=== PATIENT | female | born 1930 | race Caucasian/White ===

== ENCOUNTER → 2019-08-12 | Outpatient (CLI) | payer MEDICARE ==
--- NOTE | 2019-08-12 11:16 | Diagnostic Imaging Report ---
INDICATION: Shortness of breath PA and lateral chest Heart size and pulmonary vascularity are normal. Lungs are clear. There are no effusions or pneumothoraces. IMPRESSION: Negative chest. Dictated by: Dictated on workstation # [id number]
== END ==
LOC: LAB FS 10:43
PROVIDERS: ATTEND Family Medicine
DX: R06.02 Shortness of breath (principal); R53.83 Other fatigue
CPT/HCPCS: 71046

== ENCOUNTER → 2019-08-18 | Outpatient (CLI) | payer MEDICARE | LOC: CARD 10:27 | PROVIDERS: ATTEND Family Medicine | DX: I34.0 Nonrheumatic mitral (valve) insufficiency (principal); I51.7 Cardiomegaly; R79.89 Other specified abnormal findings of blood chemistry | CPT/HCPCS: 93306 ==

== ENCOUNTER 2019-08-21 12:55 | Inpatient (IN) | payer MEDICARE ==
[~2019-08-21] VITALS: Ht 154.4 cm; Wt 58.3 kg
[2019-08-21 14:01] LABS: HEMATOCRIT 42 % (35-52); HEMOGLOBIN 14.1 G/DL (11.5-16.0); MEAN CORPUSCULAR HEMOGLOBIN 31 PG (25-34); MEAN CORPUSCULAR VOLUME 94 FL (80-99); WHITE BLOOD COUNT 8.4 10^3/uL (4.3-11.0)
[2019-08-21 14:02] LABS: BASOPHILS # (AUTO) 0.1 10^3/uL (0.0-0.1); BASOPHILS % (AUTO) 1 % (0-10); EOSINOPHILS # (AUTO) 0.3 10^3/uL (0.0-0.3); EOSINOPHILS % (AUTO) 4 % (0-10); LYMPHOCYTES # (AUTO) 1.8 X 10^3 (1.0-4.0); LYMPHOCYTES % (AUTO) 21 % (12-44); MEAN CORPUSCULAR HGB CONC 33 G/DL (32-36); MEAN PLATELET VOLUME 11.4 FL (7.4-10.4); MONOCYTES # (AUTO) 0.7 X 10^3 (0.0-1.0); MONOCYTES % (AUTO) 8 % (0-12); NEUTROPHILS # (AUTO) 5.5 X 10^3 (1.8-7.8); NEUTROPHILS % (AUTO) 66 % (42-75); PLATELET COUNT 208 10^3/uL (130-400); RED CELL DISTRIBUTION WIDTH 13.2 % (10.0-14.5)
--- NOTE | 2019-08-21 14:03 | NUR ---
Daughter Beverly called for updates and updates were given. This RN informed her that we will give her a call when the results come back.
[2019-08-21 14:09] LABS: BACTERIA,URINE NEGATIVE /HPF; BILIRUBIN,URINE NEGATIVE (NEGATIVE); CLARITY,URINE CLEAR; COLOR,URINE YELLOW; GLUCOSE, URINE (UA) 3+ (NEGATIVE); KETONES,URINE NEGATIVE (NEGATIVE); LEUKOCYTE ESTERASE ,URINE NEGATIVE (NEGATIVE); NITRITE,URINE NEGATIVE (NEGATIVE); PROTEIN,URINE NEGATIVE (NEGATIVE); WBC,URINE RARE /HPF
[2019-08-21 14:23] LABS: ALANINE AMINOTRANSFERASE 28 U/L (0-55); ALKALINE PHOSPHATASE 88 U/L (40-136); BILIRUBIN,TOTAL 0.7 MG/DL (0.1-1.0); BUN/CREATININE RATIO 25; CALCIUM 9.6 MG/DL (8.5-10.1); CARBON DIOXIDE 24 MMOL/L (21-32); CHLORIDE 108 MMOL/L (98-107); CREATININE SERUM 1.23 MG/DL (0.60-1.30); GFR ESTIMATED 41; GLUCOSE 114 MG/DL (70-105); MAGNESIUM 2.2 MG/DL (1.6-2.4); POTASSIUM 4.3 MMOL/L (3.6-5.0); SODIUM 144 MMOL/L (135-145)
--- NOTE | 2019-08-21 15:00 | ED General ---
General Chief Complaint: General Problems/Pain Stated Complaint: SOB; GEN WEAKNESS Nursing Triage Note: PT STATES July SHE WALKED AROUND JAINISM 9 LAPS AND BECAME TIRED AND HAS HAD FATIGUE SINCE THEN. Nursing Sepsis Screen: No Definite Risk Source of Information: Patient Exam Limitations: No Limitations History of Present Illness Date Seen by Provider: Aug 21, 2019 Time Seen by Provider: 12:58 Initial Comments Patient is 81-year-old female with history of atrial fibrillation who presents with generalized fatigue and weakness for the past 2-3 weeks. Patient states she feels fatigued is not able to participate in her normal routine. She denies chest pain palpitations, shortness of breath, dizziness, lightheadedness. No fever chills, sweats, abdominal pain, nausea vomiting. Denies very frequency urgency or dysuria. Denies headache, focal motor weakness or loss of sensation. No other acute symptoms or complaints. Timing/Duration: 1-3 Hours Modifying Factors: improves with Medication, improves with Rest Allergies and Home Medications Allergies Coded Allergies: aspirin (Verified Allergy, Mild, Hives, 08/21/19) cerivastatin (Verified Allergy, Mild, Hives, 08/21/19) ciprofloxacin (Verified Allergy, Mild, Nausea, 08/21/19) fenofibrate (Verified Allergy, Mild, Rash, 08/21/19) sulfamethoxazole (Verified Allergy, Mild, Rash, 08/21/19) trimethoprim (Verified Allergy, Mild, Rash, 08/21/19) codeine (Verified Allergy, Unknown, Nausea, 08/21/19) Patient Home Medication List Home Medication List Reviewed: Yes Review of Systems Review of Systems Constitutional: see HPI EENTM: see HPI Respiratory: see HPI Cardiovascular: see HPI Gastrointestinal: no symptoms reported, see HPI Genitourinary: see HPI Musculoskeletal: see HPI Skin: see HPI Psychiatric/Neurological: See HPI Hematologic/Lymphatic: See HPI Past Ppxobnq-Wpccnd-Gvjjjq Hx Past Med/Social Hx: Reviewed Nursing Past Med/Soc Hx Patient Social History Alcohol Use: Denies Use Recreational Drug Use: No Smoking Status: Never a Smoker 2nd Hand Smoke Exposure: No Recent Foreign Travel: No Contact w/Someone Who Travel: No Recent Infectious Disease Expo: No Recent Hopitalizations: No Physical Abuse: No Sexual Abuse: No Mistreated: No Fear: No Seasonal Allergies Seasonal Allergies: No Past Medical History Eye Surgery, Orthopedic Physical Exam Vital Signs Vital Signs - First Documented 08/21/19 13:00 Temp 36.1 Pulse 91 Resp 18 B/P (MAP) 151/72 (98) Pulse Ox 98 O2 Delivery Room Air Capillary Refill : Less Than 3 Seconds Height, Weight, BMI Height: '" Weight: lbs. oz. kg; 25.00 BMI Method: General Appearance: No Apparent Distress, Other (fatigued appearing) Eyes: Bilateral Eye Normal Inspection, Bilateral Eye PERRL, Bilateral Eye EOMI HEENT: PERRL/EOMI, Pharynx Normal Neck: Full Range of Motion, Supple Respiratory: Chest Non Tender, Lungs Clear, Other (irreg rhythm) Cardiovascular: No Murmur, Normal Peripheral Pulses Gastrointestinal: Normal Bowel Sounds Back: Normal Inspection, No CVA Tenderness Extremity: Normal Capillary Refill, Normal Inspection Neurologic/Psychiatric: Alert, Oriented x3, No Motor/Sensory Deficits Focused Exam Sepsis Stage: Ruled Out Progress/Results/Core Measures Suspected Sepsis Recent Fever Within 48 Hours: No Infection Criteria Present: None New/Unexplained Altered Menta: No Sepsis Screen: No Definite Risk SIRS Temperature: Pulse: 91 Respiratory Rate: 18 Laboratory Tests 08/21/19 13:25: White Blood Count 8.4 Blood Pressure 151 /72 Mean: 98 Laboratory Tests 08/21/19 13:25: Creatinine 1.23, Platelet Count 208, Total Bilirubin 0.7 Results/Orders Lab Results Laboratory Tests Test 08/21/19 13:03 08/21/19 13:25 Range/Units Urine Color YELLOW Urine Clarity CLEAR Urine pH 6.0 5-9 Urine Specific [place] 1.015 L 1.016-1.022 Urine Protein NEGATIVE NEGATIVE Urine Glucose (UA) 3+ H NEGATIVE Urine Ketones NEGATIVE NEGATIVE Urine Nitrite NEGATIVE NEGATIVE Urine Bilirubin NEGATIVE NEGATIVE Urine Urobilinogen 0.2 < = 1.0 MG/DL Urine Leukocyte Esterase NEGATIVE NEGATIVE Urine RBC (Auto) NEGATIVE NEGATIVE Urine RBC NONE /HPF Urine WBC RARE /HPF Urine Squamous Epithelial Cells 2-5 /HPF Urine Crystals NONE /LPF Urine Bacteria NEGATIVE /HPF Urine Casts NONE /LPF Urine Mucus NEGATIVE /LPF Urine Culture Indicated NO White Blood Count 8.4 4.3-11.0 10^3/uL Red Blood Count 4.48 4.35-5.85 10^6/uL Hemoglobin 14.1 11.5-16.0 G/DL Hematocrit 42 35-52 % Mean Corpuscular Volume 94 80-99 FL Mean Corpuscular Hemoglobin 31 25-34 PG Mean Corpuscular Hemoglobin Concent 33 32-36 G/DL Red Cell Distribution Width 13.2 10.0-14.5 % Platelet Count 208 130-400 10^3/uL Mean Platelet Volume 11.4 H 7.4-10.4 FL Neutrophils (%) (Auto) 66 42-75 % Lymphocytes (%) (Auto) 21 12-44 % Monocytes (%) (Auto) 8 0-12 % Eosinophils (%) (Auto) 4 0-10 % Basophils (%) (Auto) 1 0-10 % Neutrophils # (Auto) 5.5 1.8-7.8 X 10^3 Lymphocytes # (Auto) 1.8 1.0-4.0 X 10^3 Monocytes # (Auto) 0.7 0.0-1.0 X 10^3 Eosinophils # (Auto) 0.3 0.0-0.3 10^3/uL Basophils # (Auto) 0.1 0.0-0.1 10^3/uL Sodium Level 144 135-145 MMOL/L Potassium Level 4.3 3.6-5.0 MMOL/L Chloride Level 108 H 98-107 MMOL/L Carbon Dioxide Level 24 21-32 MMOL/L Anion Gap 12 5-14 MMOL/L Blood Urea Nitrogen 31 H 7-18 MG/DL Creatinine 1.23 0.60-1.30 MG/DL Estimat Glomerular Filtration Rate 41 BUN/Creatinine Ratio 25 Glucose Level 114 H 70-105 MG/DL Calcium Level 9.6 8.5-10.1 MG/DL Corrected Calcium 9.6 8.5-10.1 MG/DL Magnesium Level 2.2 1.6-2.4 MG/DL Total Bilirubin 0.7 0.1-1.0 MG/DL Aspartate Amino Transf (AST/SGOT) 29 5-34 U/L Alanine Aminotransferase (ALT/SGPT) 28 0-55 U/L Alkaline Phosphatase 88 40-136 U/L Troponin I < 0.30 <0.30 NG/ML Pro-B-Type Natriuretic Peptide 2674.0 H <75.0 PG/ML Total Protein 7.0 6.4-8.2 GM/DL Albumin 4.0 3.2-4.5 GM/DL My Orders Orders - ALISA LOPEZ DO Cbc With Automated Diff (08/21/19 13:21) Comprehensive Metabolic Panel (08/21/19 13:21) Urinalysis (08/21/19 13:21) Troponin I Fs (08/21/19 13:21) Magnesium (08/21/19 13:21) Probnp Fs (08/21/19 13:21) Ekg Tracing (08/21/19 13:21) Digoxin (08/21/19 14:00) Vital Signs/I&O 08/21/19 13:00 Temp 36.1 Pulse 91 Resp 18 B/P (MAP) 151/72 (98) Pulse Ox 98 O2 Delivery Room Air Capillary Refill : Less Than 3 Seconds Blood Pressure Mean: 98 Departure Communication (Admissions) EKG reviewed: Sinus bradycardia with diffuse ST depression concerning for digitoxin effect Chest x-ray: Reviewed Impression Primary Impression: Fatigue Additional Impressions: Symptomatic bradycardia Abnormal EKG Disposition: 62 DISC/XFER TO IRF Condition: Stable/Unchanged Admissions Decision to Admit Reason: Admit from ER (General) Decision to Admit/Date: Aug 21, 2019 Time/Decision to Admit Time: 14:59 Transfer Transfer Reason: Exceeds level of care Time Spoke to Accepting Phy: 14:59 (DR. Chapa) Method of Transfer: EMS Departure-Patient Inst. Referrals: SELF,KAI VASQUEZ (PCP/Family) Primary Care Physician ALISA LOPEZ DO Aug 21, 2019 15:00
--- OUTSIDE RECORDS SUMMARY | 2019-08-21 15:56 | XMS REPORT ---
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 Active 884425275 Problem Hyperlipemia, mixed E78.2 Active 196571693 Problem Hyperlipidemia, mixed E78.2 Active 233115596 Problem Vitamin D deficiency E55.9 Active 37193944 Problem Pulmonary hypertension, unspecified I27.20 Active 27734026 Problem Chronic fatigue R53.82 Active 8422 9001 ALLERGIES No Information ENCOUNTERS Encounter Location Date Diagnosis [address] [id number] [place] [address] Jun, [address] [id number] [place] [address] May, [address] [id number] [place] [address] May, [address] [id number] [place] [address] Apr, [address] [id number] [address] Apr, [address] [id number] [place] [address] Apr, Type 2 diabetes mellitus wit h other specified complication E11.69 and Hyperlipemia, mixed E78.2 [facility] [place] [address] [id number] [place] [address] Apr, [facility] [address] [id number] [place] [address] Apr, [facility] [address] [id number] [place] [address] 08 Mar, 2019 Type 2 diabetes mellitus wit h other specified complication E11.69 [facility] [address] [id number] [place] [address] 07 Mar, 2019 [facility] [address] [id number] [place] [address] Mar, [address] [id number] [place] [address] Mar, [address] [id number], [place] [address] Feb, Encounter for Medicare [facility] wellness exam Z00.00 ; Essential hypertension I10 ; Type 2 diabetes mellitus with other specified complication E11.69 ; Hyperlipidemia, mixed E78.2 ; Chronic fatigue R53.82 ; Pulmonary hypertension, unspecified I27.20 and Vitamin D deficiency E55.9 [facility] [address] [facility] [id number] 100KS [place] [address] Feb, [facility] [address] [id number], [place] [address] Jan, [address] [id number] [place] [address] Dec, Pulmonary hypertension, unsp ecified I27.20 ; Type 2 diabetes mellitus with other specified complication E11.69 ; Hyperlipemia, mixed E78.2 ; Encounter for immunization Z23 ; Leg cramps R25.2 ; Blister of toe of right foot, initial encounter S90.424A ; Chronic fatigue R53.82 and Vitamin D deficiency E55.9 [facility] [address] [id number] [address] 15 Dec, 2018 [facility] [address] [id number] [place] [address] Dec, Type 2 diabetes mellitus wit h other specified complication E11.69 ; Essential hypertension I10 and Hyperlipemia, mixed E78.2 [facility] [place] [address] [id number] [place] [address] Dec, Type 2 diabetes mellitus wit h other specified complication E11.69 ; Essential hypertension I10 and Hyperlipemia, mixed E78.2 [facility] [address] [id number] [place] [address] Dec, [facility] [address] [id number] [place] [address] 17 Nov, 2018 [facility] [address] [id number] [place] [address] 16 Nov, 2018 [facility] [place] [address] [id number] [place] [address] 14 Nov, 2018 [facility] [address] [id number] [place] [address] Nov, [facility] [address] [id number] [place] [address] Sep, [facility] [address] [id number] [place] [address] Aug, Type 2 diabetes mellitus wit h other specified complication E11.69 and Chronic atrial fibrillation I48.2 [facility] [place] [address] [id number] [place] [address] 13 Aug, 2018 Type 2 diabetes mellitus wit h other specified complication E11.69 ; 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 ; Essential hypertension I10 ; Hyperlipemia, mixed E78.2 and Chronic atrial fibrillation I48 .2 [facility] [address] [id number] [place] [address] Aug, [facility] [address] [id number] [place] [address] Aug, [facility] [address] [id number] [place] [address] July, [facility] [address]B [id number] [place] [address] July, [facility] [address] [id number] [place] [address] July, [facility] [address] 340[address] [id number] [place] [address] Jun, [facility] [address] 340B [id number] [place] [address] Jun, [facility] [address] [id number] [place] [address] Jun, [facility] [address] [id number] [place] [address] May, [facility] [address] [id number] [place] [address] May, [facility] [address] [id number] [place] [address] Apr, Left ankle pain M25.572 and Left ankle sprain S93.402A [facility] [address]B [id number] [place] [address] Apr, Type 2 diabetes mellitus wit h other specified complication E11.69 ; 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 ; Essential hypertension I10 ; Hyperlipemia, mixed E78.2 and Chronic atrial fibrillation I48 .2 [facility] [address] [id number] [place] [address] Apr, IMMUNIZATIONS No Known Immunizations SOCIAL HISTORY Never Assessed REASON FOR VISIT Requests return call PLAN OF CARE VITAL SIGNS MEDICATIONS Unknown Medications RESULTS No Results PROCEDURES No Known procedures INSTRUCTIONS MEDICATIONS ADMINISTERED No Known Medications MEDICAL (GENERAL) HISTORY Type Description Date Medical History Type 2 diabetes mellitus with other spec ified complication Medical History termite technician current 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
--- OUTSIDE RECORDS SUMMARY | 2019-08-21 15:56 | XMS REPORT ---
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 Active 347196534 Problem Hyperlipemia, mixed E78.2 Active 083515813 Problem Hyperlipidemia, mixed E78.2 Active 334959186 Problem Vitamin D deficiency E55.9 Active 98893127 Problem Pulmonary hypertension, unspecified I27.20 Active 37095108 Problem Chronic fatigue R53.82 Active 8422 9001 ALLERGIES No Information ENCOUNTERS Encounter Location Date Diagnosis [address] [id number] [place] [address] Jun, [address] 340[address] [id number] [place] [address] May, [address] 340B [id number] [place] [address] May, [address] 340[address] [id number] [place] [address] Apr, [address] [id number], [place] [address] Apr, [address] 340B [id number] [place] [address] Apr, Type 2 diabetes mellitus wit h other specified complication E11.69 and Hyperlipemia, mixed E78.2 [facility] [place] [address] [id number] [place] [address] Apr, [facility] [address] 340[address] [id number] [place] [address] Apr, [facility] [address] 340B [id number] [place] [address] 08 Mar, 2019 Type 2 diabetes mellitus wit h other specified complication E11.69 [facility] [address] 340[address] [id number] [place] [address] 07 Mar, 2019 [facility] [address] 340B [id number] [place] [address] Mar, [address] [id number] [place] [address] Mar, [address] 340[id number], [place] [address] Feb, Encounter for Medicare [facility] wellness exam Z00.00 ; Essential hypertension I10 ; Type 2 diabetes mellitus with other specified complication E11.69 ; Hyperlipidemia, mixed E78.2 ; Chronic fatigue R53.82 ; Pulmonary hypertension, unspecified I27.20 and Vitamin D deficiency E55.9 [facility] [address] [facility] [id number] 100[address] [place] [address] Feb, [facility] [place] [address] 340[address] [id number], [place] [address] Jan, [address] [id number] [place] [address] Dec, Pulmonary hypertension, unsp ecified I27.20 ; Type 2 diabetes mellitus with other specified complication E11.69 ; Hyperlipemia, mixed E78.2 ; Encounter for immunization Z23 ; Leg cramps R25.2 ; Blister of toe of right foot, initial encounter S90.424A ; Chronic fatigue R53.82 and Vitamin D deficiency E55.9 [facility] [address] 340B [id number][place] [address] 15 Dec, 2018 [facility] [place] [address] 340B [id number] [place] [address] Dec, Type 2 diabetes mellitus wit h other specified complication E11.69 ; Essential hypertension I10 and Hyperlipemia, mixed E78.2 [facility] [place] [address]B [id number] [place] [address] Dec, Type 2 diabetes mellitus wit h other specified complication E11.69 ; Essential hypertension I10 and Hyperlipemia, mixed E78.2 [facility] [address]B [id number] [place] [address] Dec, [facility] [place] [address] [id number] [place] [address] 17 Nov, 2018 [facility] [address]B [id number] [place] [address] 16 Nov, 2018 [facility] [place] [address] [id number] [place] [address] 14 Nov, 2018 [facility] [address] [id number] [place] [address] Nov, [facility] [place] [address] [id number] [place] [address] Sep, [facility] [address] [id number] [place] [address] Aug, Type 2 diabetes mellitus wit h other specified complication E11.69 and Chronic atrial fibrillation I48.2 [facility] [place] [address]B [id number] [place] [address] 13 Aug, 2018 Type 2 diabetes mellitus wit h other specified complication E11.69 ; 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 ; Essential hypertension I10 ; Hyperlipemia, mixed E78.2 and Chronic atrial fibrillation I48 .2 [facility] [address] 340B [id number] [place] [address] Aug, [facility] [place] [address]B [id number] [place] [address] Aug, [facility] [address] [id number] [place] [address] July, [facility] [address] 340B [id number] [place] [address] July, [facility] [address] [id number] [place] [address] July, [facility] [address] [id number] [place] [address] Jun, [facility] [address] 340B [id number] [place] [address] Jun, [facility] [address] 340B [id number] [place] [address] Jun, [facility] [address] [id number] [place] [address] May, [facility] [address] [id number] [place] [address] May, [facility] [address] [id number] [place] [address] Apr, Left ankle pain M25.572 and Left ankle sprain S93.402A [facility] [address] [id number] [place] [address] Apr, Type 2 diabetes mellitus wit h other specified complication E11.69 ; 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 ; Essential hypertension I10 ; Hyperlipemia, mixed E78.2 and Chronic atrial fibrillation I48 .2 [facility] [address] [id number] [place] [address] Apr, IMMUNIZATIONS No Known Immunizations SOCIAL HISTORY Never Assessed REASON FOR VISIT [place] PLAN OF CARE VITAL SIGNS MEDICATIONS Unknown Medications RESULTS No Results PROCEDURES No Known procedures INSTRUCTIONS MEDICATIONS ADMINISTERED No Known Medications MEDICAL (GENERAL) HISTORY Type Description Date Medical History Type 2 diabetes mellitus with other spec ified complication 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
--- OUTSIDE RECORDS SUMMARY | 2019-08-21 15:56 | XMS REPORT ---
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 Active 063464599 Problem Chronic atrial fibrillation I48.2 Ac tive 601387125 ALLERGIES No Information ENCOUNTERS Encounter Location Date Diagnosis [address] [address] Dec, [address] [address] Aug, Type 2 diabetes mellitus with other spec ified complication E11.69 and Chronic atrial fibrillation I48.[address] [address] Aug, Type 2 diabetes mellitus with other spec ified complication E11.69 ; halfway current use of insulin Z79.4 ; Essential hypertension I10 ; Hyperlipemia, mixed E78.2 and Chronic atrial fibrillation I48.[address] [address] Aug, [address] [address] Aug, [address] [address] July, [address] [address] July, [address] [address] July, [facility] [address] [address] Jun, [facility] [address] [address] Jun, [facility] [address] [address] Jun, [facility] [address] [address] May, [address] [address] May, [facility] [address] [facility] [place] [address] Apr, Left ankle pain M25.572 and Left ankle s prain S93.402A [facility] [address] [address] Apr, Type 2 diabetes mellitus with other spec ified complication E11.69 ; halfway current use of insulin Z79.4 ; Essential hypertension I10 ; Hyperlipemia, mixed E78.2 and Chronic atrial fibrillation I48.[address] [address] Apr, IMMUNIZATIONS No Known Immunizations SOCIAL HISTORY Never Assessed REASON FOR VISIT Medication question PLAN OF CARE VITAL SIGNS MEDICATIONS Medication Instructions Dosage Frequency Start Date End Date Duration S tatus Alprazolam 0.25 MG Orally as directed 1/2 tablet in the m orning and 1 at HS as needed 28 days Active RESULTS No Results PROCEDURES No Known procedures INSTRUCTIONS MEDICATIONS ADMINISTERED No Known Medications MEDICAL (GENERAL) HISTORY Type Description Date Medical History Type 2 diabetes mellitus with other spec ified complication Medical History halfway current use of insulin Medical History Essential hypertension Medical History Hyperlipidemia, mixed Medical History Chronic atrial fibrillation Surgical History left knee arthroscopy 1985 Surgical History right knee arthroscopy 1985 Surgical History cataract-lens implants X2 2007 Surgical History eyes lift Surgical History removal rocks from head 2016
--- OUTSIDE RECORDS SUMMARY | 2019-08-21 15:57 | XMS REPORT | Continuity of Care Document ---
Author Organization Unknown Address Unknown Phone Unavailable Allergies There is no data. Medications There is no data. 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 Results Test Result Range LIPID PANEL - 08/29/18 10:00 CHOLESTEROL, TOTAL 137 mg/dL <200 HDL CHOLESTEROL 48 mg/dL >50 TRIGLYCERIDES 166 mg/dL <150 LDL-CHOLESTEROL 65 mg/dL (calc) NRG CHOL/HDLC RATIO 2.9 (calc) <5.0 NON HDL CHOLESTEROL 89 mg/dL (calc) <130 CMP - 08/29/18 10:00 GLUCOSE 152 mg/dL 65-99 UREA NITROGEN (BUN) 17 mg/dL 7-25 CREATININE 1.04 mg/dL 0.60-0.88 eGFR NON-AFR. CAMEROONIAN 48 mL/min/1.73m2 > OR = 60 eGFR 56 mL/min/1.73m2 > OR = 60 BUN/CREATININE RATIO 16 (calc) 6-22 SODIUM 144 mmol/L 135-146 POTASSIUM 4.4 mmol/L 3.5-5.3 CHLORIDE 108 mmol/L 98-110 CARBON DIOXIDE 26 mmol/L 20-32 CALCIUM 9.5 mg/dL 8.6-10.4 PROTEIN, TOTAL 7.0 g/dL 6.1-8.1 ALBUMIN 4.6 g/dL 3.6-5.1 GLOBULIN 2.4 g/dL (calc) 1.9-3.7 ALBUMIN/GLOBULIN RATIO 1.9 (calc) 1.0-2. 5 BILIRUBIN, TOTAL 1.2 mg/dL 0.2-1.2 ALKALINE PHOSPHATASE 58 U/L 33-130 AST 19 U/L 10-35 ALT 16 U/L - TSH - 08/29/18 10:00 TSH 3.75 mIU/L 0.40-4.50 A1C - 08/29/18 10:00 HEMOGLOBIN A1c 8.3 % of total Hgb <5.7 TSH w/ FREE T4 - 12/27/18 09:49 TSH 2.83 mIU/L 0.40-4.50 T4, FREE 1.1 ng/dL 0.8-1.8 LIPID PANEL - 12/27/18 09:49 CHOLESTEROL, TOTAL 131 mg/dL <200 HDL CHOLESTEROL 41 mg/dL >50 TRIGLYCERIDES 168 mg/dL <150 LDL-CHOLESTEROL 65 mg/dL (calc) NRG CHOL/HDLC RATIO 3.2 (calc) <5.0 NON HDL CHOLESTEROL 90 mg/dL (calc) <130 CMP - 12/27/18 09:49 GLUCOSE 133 mg/dL 65-99 UREA NITROGEN (BUN) 20 mg/dL 7-25 CREATININE 1.02 mg/dL 0.60-0.88 eGFR NON-AFR. CAMEROONIAN 49 mL/min/1.73m2 > OR = 60 eGFR 57 mL/min/1.73m2 > OR = 60 BUN/CREATININE RATIO 20 (calc) 6-22 SODIUM 144 mmol/L 135-146 POTASSIUM 5.0 mmol/L 3.5-5.3 CHLORIDE 109 mmol/L 98-110 CARBON DIOXIDE 24 mmol/L 20-32 CALCIUM 9.3 mg/dL 8.6-10.4 PROTEIN, TOTAL 6.6 g/dL 6.1-8.1 ALBUMIN 4.1 g/dL 3.6-5.1 GLOBULIN 2.5 g/dL (calc) 1.9-3.7 ALBUMIN/GLOBULIN RATIO 1.6 (calc) 1.0-2. 5 BILIRUBIN, TOTAL 1.3 mg/dL 0.2-1.2 ALKALINE PHOSPHATASE 63 U/L 33-130 AST 18 U/L 10-35 ALT 14 U/L - A1C - 12/27/18 09:49 HEMOGLOBIN A1c 7.7 % of total Hgb <5.7 MAGNESIUM SERUM - 07/02/19 09:29 MAGNESIUM 1.7 mg/dL 1.5-2.5 CBC - 07/02/19 09:29 WHITE BLOOD CELL COUNT 7.6 Thousand/uL 3 .8-10.8 RED BLOOD CELL COUNT 4.63 Million/uL 3.8 0-5.10 HEMOGLOBIN 14.4 g/dL 11.7-15.5 HEMATOCRIT 43.7 % 35.0-45.0 MCV 94.4 fL 80.0-100.0 MCH 31.1 pg 27.0-33.0 MCHC 33.0 g/dL 32.0-36.0 RDW 11.8 % 11.0-15.0 PLATELET COUNT 196 Thousand/uL 140-400 MPV 12.1 fL 7.5-12.5 ABSOLUTE NEUTROPHILS 5525 cells/uL 1500- 7800 ABSOLUTE LYMPHOCYTES 1155 cells/uL 850-3 900 ABSOLUTE MONOCYTES 585 cells/uL 200-950 ABSOLUTE EOSINOPHILS 228 cells/uL 15-500 ABSOLUTE BASOPHILS 106 cells/uL 0-200 NEUTROPHILS 72.7 % NRG LYMPHOCYTES 15.2 % NRG MONOCYTES 7.7 % NRG EOSINOPHILS 3.0 % NRG BASOPHILS 1.4 % NRG VITAMIN D, 25-H - 07/02/19 09:29 VITAMIN D,25-OH,TOTAL,IA 43 ng/mL 30-10 0 A1C - 07/02/19 09:29 HEMOGLOBIN A1c 9.1 % of total Hgb <5.7 VITAMIN B12 - 07/02/19 09:29 VITAMIN B12 823 pg/mL 200-1100 CMP - 08/12/19 11:09 GLUCOSE 244 mg/dL 65-99 UREA NITROGEN (BUN) 33 mg/dL 7-25 CREATININE 1.18 mg/dL 0.60-0.88 eGFR NON-AFR. CAMEROONIAN 41 mL/min/1.73m2 > OR = 60 eGFR 48 mL/min/1.73m2 > OR = 60 BUN/CREATININE RATIO 28 (calc) 6-22 SODIUM 143 mmol/L 135-146 POTASSIUM 4.6 mmol/L 3.5-5.3 CHLORIDE 108 mmol/L 98-110 CARBON DIOXIDE 26 mmol/L 20-32 CALCIUM 9.5 mg/dL 8.6-10.4 PROTEIN, TOTAL 6.8 g/dL 6.1-8.1 ALBUMIN 4.1 g/dL 3.6-5.1 GLOBULIN 2.7 g/dL (calc) 1.9-3.7 ALBUMIN/GLOBULIN RATIO 1.5 (calc) 1.0-2. 5 BILIRUBIN, TOTAL 1.0 mg/dL 0.2-1.2 ALKALINE PHOSPHATASE 94 U/L 37-153 AST 29 U/L 10-35 ALT 36 U/L 6-29 CBC - 08/12/19 11:09 WHITE BLOOD CELL COUNT 8.0 Thousand/uL 3 .8-10.8 RED BLOOD CELL COUNT 4.37 Million/uL 3.8 0-5.10 HEMOGLOBIN 14.0 g/dL 11.7-15.5 HEMATOCRIT 42.3 % 35.0-45.0 MCV 96.8 fL 80.0-100.0 MCH 32.0 pg 27.0-33.0 MCHC 33.1 g/dL 32.0-36.0 RDW 12.3 % 11.0-15.0 PLATELET COUNT 208 Thousand/uL 140-400 MPV 12.1 fL 7.5-12.5 ABSOLUTE NEUTROPHILS 5896 cells/uL 1500- 7800 ABSOLUTE LYMPHOCYTES 1200 cells/uL 850-3 900 ABSOLUTE MONOCYTES 592 cells/uL 200-950 ABSOLUTE EOSINOPHILS 216 cells/uL 15-500 ABSOLUTE BASOPHILS 96 cells/uL 0-200 NEUTROPHILS 73.7 % NRG LYMPHOCYTES 15.0 % NRG MONOCYTES 7.4 % NRG EOSINOPHILS 2.7 % NRG BASOPHILS 1.2 % NRG A1C - 08/12/19 11:09 HEMOGLOBIN A1c 9.1 % of total Hgb <5.7 BNP - 08/12/19 11:09 B TYPE NATRIURETIC PEPTIDE (BNP) 355 pg/mL <100 TROPONIN I - 08/12/19 11:09 TROPONIN I 0.01 ng/mL < OR = 0.05 Encounters ACCT No. Visit Date/Time Discharge Status Pt. Type Provider Facility Loc./Unit Complaint [id number] 08/12/2019 10:30:00 08/12/2019 23:59: 59 CLS Outpatient SELF, KAI Avila [facility] [id number] 08/12/2019 10:30:00 Document Registration [id number] 07/02/2019 09:20:00 Document Registration [id number] 12/27/2018 08:30:00 Document Registration [id number] 08/29/2018 09:45:00 Document Registration [id number] 08/12/2019 10:43:00 020 23:59:59 CLS Outpatient SELF KAI VASQUEZ Via [facility] FS FATIGUE,SHORTNESS OF BR EATH [id number] 08/18/2019 10:27:[address] Outpatient SELF KAI VASQUEZ [facility] [place] CARD ELEVATED BRAIN NATRIURETIC P EPTIDE
--- NOTE | 2019-08-21 16:14 | NUR ---
Report was given to Tiffanie, TERESA and Rajan, SKIN PILER. Care was transferred at this time.
[2019-08-21] MEDS ORDERED: ONDANSETRON 4 MG (ZOFRAN) ORAL DISSOLVE TAB PO PRN (16:15)
[2019-08-21] MEDS ORDERED: MELATONIN 3 MG TABLET PO PRN (16:15)
[2019-08-21] MEDS ORDERED: HYDROcodone/APAP 5 MG/325 MG (LORTAB) TAB PO PRN (16:15)
[2019-08-21] MEDS ORDERED: diphenhydrAMINE 25 MG TAB (BENADRYL) PO PRN (16:15)
[2019-08-21] MEDS ORDERED: ONDANSETRON 4 MG/2 ML (SDV) Z0FRAN IVP PRN (16:15)
[2019-08-21] MEDS ORDERED: ALPRAZolam 0.25 MG (XANAX) TAB PO PRN (16:15)
[2019-08-21] MEDS ORDERED: CALCIUM CARBONATE 500 MG (TUMS) TAB.CHEW PO PRN (16:15)
[2019-08-21] MEDS ORDERED: ACETAMINOPHEN 500 MG TAB (TYLENOL) PO PRN (16:15)
[2019-08-21] MEDS ORDERED: ENOXAPARIN 40 MG/0.4 ML (LOVENOX) SYR SC SCH (16:15)
[2019-08-21] MEDS ORDERED: CATHETER FLUSH 10 ML SYR IV PRN (16:30)
[2019-08-21 17:13] VITALS: BP 143/67
[2019-08-21] MEDS: NS IV 1000 ML 1,000 ML IV SCH (17:19)
--- OUTSIDE RECORDS SUMMARY | 2019-08-21 18:31 | XMS REPORT | Continuity of Care Document ---
[...] 7-25 CREATININE 1.04 mg/dL 0.60-0.88 eGFR NON-AFR. GABONESE 48 mL/min/1.73m2 > OR = 60 eGFR [...] 7-25 CREATININE 1.02 mg/dL 0.60-0.88 eGFR NON-AFR. GABONESE 49 mL/min/1.73m2 > OR = 60 eGFR [...] 7-25 CREATININE 1.18 mg/dL 0.60-0.88 eGFR NON-AFR. GABONESE 41 mL/min/1.73m2 > OR = 60 eGFR [...] Status Pt. Type Provider Facility Loc./Unit Complaint [id number] 08/12/2019 10:30:00 08/12/2019 23:59: 59 CLS Outpatient SELF, KAI Avila [facility] [id number] 08/12/2019 10:30:00 Document Registration [id number] 07/02/2019 09:20:00 Document Registration [id number] 12/27/2018 08:30:00 Document Registration [id number] 08/29/2018 09:45:00 Document Registration [id number] 08/12/2019 10:43:00 020 23:59:59 CLS Outpatient SELF KAI VASQUEZ Via [facility] FS FATIGUE,SHORTNESS OF BR EATH [id number] 08/18/2019 10:27:[address] Outpatient SELF KAI VASQUEZ [facility] [place] CARD ELEVATED BRAIN NATRIURETIC P EPTIDE
[2019-08-21 19:23] VITALS: BP 150/66
[2019-08-21] MEDS: SENNA W/DOCUSATE (SENOKOT S) TABLET PO SCH (20:04)
[2019-08-21] MEDS: APIXABAN 2.5 MG (ELIQUIS) TABLET PO SCH (20:24)
[2019-08-21] MEDS ORDERED: FUROSEMIDE 40 MG/4 ML INJ (LASIX) ONE (20:44)
[2019-08-21] MEDS: FUROSEMIDE 40 MG/4 ML INJ (LASIX) IVP SCH (20:49)
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
[2019-08-22] VITALS: BP 124/65
[2019-08-22 04:20] VITALS: BP 128/71
[2019-08-22] MEDS: FUROSEMIDE 40 MG/4 ML INJ (LASIX) IVP SCH (06:11)
[2019-08-22 07:03] LABS: BASOPHILS # (AUTO) 0.1 10^3/uL (0.0-0.1); BASOPHILS % (AUTO) 1 % (0-10); EOSINOPHILS # (AUTO) 0.3 10^3/uL (0.0-0.3); EOSINOPHILS % (AUTO) 4 % (0-10); HEMATOCRIT 45 % (35-52); HEMOGLOBIN 14.7 G/DL (11.5-16.0); LYMPHOCYTES # (AUTO) 1.6 X 10^3 (1.0-4.0); LYMPHOCYTES % (AUTO) 20 % (12-44); MEAN CORPUSCULAR HEMOGLOBIN 31 PG (25-34); MEAN CORPUSCULAR HGB CONC 33 G/DL (32-36); MEAN CORPUSCULAR VOLUME 95 FL (80-99); MEAN PLATELET VOLUME 11.7 FL (7.4-10.4); MONOCYTES # (AUTO) 0.8 X 10^3 (0.0-1.0); MONOCYTES % (AUTO) 10 % (0-12); NEUTROPHILS # (AUTO) 5.3 X 10^3 (1.8-7.8); NEUTROPHILS % (AUTO) 66 % (42-75); PLATELET COUNT 204 10^3/uL (130-400); WHITE BLOOD COUNT 8.1 10^3/uL (4.3-11.0)
[2019-08-22 07:16] LABS: BILIRUBIN,TOTAL 1.1 MG/DL (0.1-1.0); CALCIUM 9.5 MG/DL (8.5-10.1); CREATININE SERUM 1.07 MG/DL (0.60-1.30); POTASSIUM 3.8 MMOL/L (3.6-5.0); TOTAL PROTEIN 7.2 GM/DL (6.4-8.2)
[2019-08-22 07:43] VITALS: BP 103/47
--- NOTE | 2019-08-22 09:18 | Consultation-Cardiology ---
HPI-Cardiology Cardiology Consultation Date of Consultation 08/22/19 Date of Admission Time Seen by Provider: 09:13 HPI 89-year-old lady with history of chronic atrial fibrillation, has been following with a plumber supervisor. Patient has been complaining of generalized weakness and loss of energy. Denied any syncope, no chest pain, no palpitation, seen in [place] emergency room and noted to be bradycardic with a heart rate 33. On my evaluation today he still complaining of dizziness and weakness and loss of energy but her heart rate is in the 70s. Does not know the name of the plumber supervisor who follows with. Home Medications & Allergies Allergies: Coded Allergies: aspirin (Verified Allergy, Mild, Hives, 08/21/19) cerivastatin (Verified Allergy, Mild, Hives, 08/21/19) ciprofloxacin (Verified Allergy, Mild, Nausea, 08/21/19) fenofibrate (Verified Allergy, Mild, Rash, 08/21/19) sulfamethoxazole (Verified Allergy, Mild, Rash, 08/21/19) trimethoprim (Verified Allergy, Mild, Rash, 08/21/19) codeine (Verified Allergy, Unknown, Nausea, 08/21/19) Home Medication List Reviewed: Yes BYP-Poplct-Acxlgy Hx Patient Social History Marital Status: Employed/Student: retired Alcohol Use: Denies Use Recreational Drug Use: No Smoking Status: Never a Smoker 2nd Hand Smoke Exposure: No Recent Foreign Travel: No Recent Infectious Disease Expo: No Recent Hopitalizations: No Past Medical History Discussed below Family Medical History Family Medical Hx Noncontributory Review of Systems-General Review of Systems Constitutional: see HPI, malaise, weakness EENTM: see HPI, no symptoms reported Respiratory: see HPI; No cough; dyspnea on exertion; No hemoptysis, No orthopnea, No phlegm, No short of breath, No stridor, No wheezing, No other Cardiovascular: see HPI; No chest pain, No edema, No Hx of Intervention, No palpitations, No syncope, No vascular heart diseas, No other Gastrointestinal: no symptoms reported, see HPI Genitourinary: see HPI Musculoskeletal: see HPI, joint pain, muscle weakness Skin: see HPI Psychiatric/Neurological: See HPI Reviewed Test Results Reviewed Test Results Lab Laboratory Tests Test 08/21/19 13:03 08/21/19 13:25 08/22/19 06:07 Range/Units Urine Color YELLOW Urine Clarity CLEAR Urine pH 6.0 5-9 Urine Specific [place] 1.015 L 1.016-1.022 Urine Protein NEGATIVE NEGATIVE Urine Glucose (UA) 3+ H NEGATIVE Urine Ketones NEGATIVE NEGATIVE Urine Nitrite NEGATIVE NEGATIVE Urine Bilirubin NEGATIVE NEGATIVE Urine Urobilinogen 0.2 < = 1.0 MG/DL Urine Leukocyte Esterase NEGATIVE NEGATIVE Urine RBC (Auto) NEGATIVE NEGATIVE Urine RBC NONE /HPF Urine WBC RARE /HPF Urine Squamous Epithelial Cells 2-5 /HPF Urine Crystals NONE /LPF Urine Bacteria NEGATIVE /HPF Urine Casts NONE /LPF Urine Mucus NEGATIVE /LPF Urine Culture Indicated NO White Blood Count 8.4 8.1 4.3-11.0 10^3/uL Red Blood Count 4.48 4.71 4.35-5.85 10^6/uL Hemoglobin 14.1 14.7 11.5-16.0 G/DL Hematocrit 42 45 35-52 % Mean Corpuscular Volume 94 95 80-99 FL Mean Corpuscular Hemoglobin 31 31 25-34 PG Mean Corpuscular Hemoglobin Concent 33 33 32-36 G/DL Red Cell Distribution Width 13.2 14.0 10.0-14.5 % Platelet Count 208 204 130-400 10^3/uL Mean Platelet Volume 11.4 H 11.7 H 7.4-10.4 FL Neutrophils (%) (Auto) 66 66 42-75 % Lymphocytes (%) (Auto) 21 20 12-44 % Monocytes (%) (Auto) 8 10 0-12 % Eosinophils (%) (Auto) 4 4 0-10 % Basophils (%) (Auto) 1 1 0-10 % Neutrophils # (Auto) 5.5 5.3 1.8-7.8 X 10^3 Lymphocytes # (Auto) 1.8 1.6 1.0-4.0 X 10^3 Monocytes # (Auto) 0.7 0.8 0.0-1.0 X 10^3 Eosinophils # (Auto) 0.3 0.3 0.0-0.3 10^3/uL Basophils # (Auto) 0.1 0.1 0.0-0.1 10^3/uL Sodium Level 144 142 135-145 MMOL/L Potassium Level 4.3 3.8 3.6-5.0 MMOL/L Chloride Level 108 H 108 H 98-107 MMOL/L Carbon Dioxide Level 24 22 21-32 MMOL/L Anion Gap 12 12 5-14 MMOL/L Blood Urea Nitrogen 31 H 25 H 7-18 MG/DL Creatinine 1.23 1.07 0.60-1.30 MG/DL Estimat Glomerular Filtration Rate 41 48 BUN/Creatinine Ratio 25 23 Glucose Level 114 H 104 70-105 MG/DL Calcium Level 9.6 9.5 8.5-10.1 MG/DL Corrected Calcium 9.6 9.5 8.5-10.1 MG/DL Magnesium Level 2.2 2.0 1.6-2.4 MG/DL Total Bilirubin 0.7 1.1 H 0.1-1.0 MG/DL Aspartate Amino Transf (AST/SGOT) 29 31 5-34 U/L Alanine Aminotransferase (ALT/SGPT) 28 31 0-55 U/L Alkaline Phosphatase 88 82 40-136 U/L Troponin I < 0.30 <0.30 NG/ML Pro-B-Type Natriuretic Peptide 2674.0 H <75.0 PG/ML Total Protein 7.0 7.2 6.4-8.2 GM/DL Albumin 4.0 4.0 3.2-4.5 GM/DL Digoxin Level 0.81 0.63 L 0.80-2.00 NG/ML B-Type Natriuretic Peptide 167.0 H <100.0 PG/ML Triglycerides Level 156 H <150 MG/DL Cholesterol Level 161 < 200 MG/DL LDL Cholesterol Direct 103 1-129 MG/DL VLDL Cholesterol 31 5-40 MG/DL HDL Cholesterol 40 40-60 MG/DL Physical Exam Physical Exam Vital Signs Vital Signs - First Documented 08/21/19 13:00 Temp 36.1 Pulse 91 Resp 18 B/P (MAP) 151/72 (98) Pulse Ox 98 O2 Delivery Room Air Capillary Refill : Less Than 3 Seconds Height, Weight, BMI Height: '" Weight: lbs. oz. kg; 24.91 BMI Method: General Appearance: No Apparent Distress, Chronically ill Eyes: Right Eye Normal Inspection, Right Eye PERRL; Bilateral Eye EOMI HEENT: PERRL/EOMI, Normal ENT Inspection, Pharynx Normal, Moist Mucous Mem branes Neck: Full Range of Motion, Normal Inspection, Non Tender Respiratory: Chest Non Tender, Lungs Clear, Normal Breath Sounds, No Accessory Muscle Use, No Respiratory Distress Cardiovascular: No Edema, No Gallop, No JVD, No Murmur, Normal Peripheral Pulses, Bradycardia, Irregularly Irregular Gastrointestinal: Normal Bowel Sounds, No Organomegaly, No Pulsatile Mass, Non Tender, Soft Back: Normal Inspection, No CVA Tenderness, No Vertebral Tenderness Extremity: Normal Capillary Refill, Normal Inspection, Normal Range of Motion, Non Tender, No Calf Tenderness, No Pedal Edema Neurologic/Psychiatric: Alert, Oriented x3, No Motor/Sensory Deficits, Normal Mood/Affect, Motor Weakness (generalized all extremities) Skin: Normal Color, Warm/Dry Lymphatic: No Adenopathy A/P-Cardiology Admission Diagnosis Severe bradycardia Chronic atrial fibrillation Hypertension Debility Assessment/Plan Severe bradycardia, probably due to medication, currently heart rate is better. Still symptomatic weakness and loss of energy. Will start physical therapy and continue to monitor, discontinue digoxin for now. Questionable history of congestive heart failure, no signs of heart failure at this time, hold diuretics and monitor tolerance and response Hypertension, continue to monitor blood pressure Chronic persistent atrial fibrillation, maintained on oral anticoagulation, restart medication and monitor. Hyperlipidemia, monitor lipids Depression, anxiety, managed by primary care team Clinical Quality Measures DVT/VTE Risk/Contraindication: Risk Factor Score Per Nursin RFS Level Per Nursing on Admit: 2=Moderate JOSE MANUEL DIOP MD Aug 22, 2019 09:18
[2019-08-22] MEDS: SENNA W/DOCUSATE (SENOKOT S) TABLET PO SCH ×2 (09:20→20:24)
[2019-08-22] MEDS: APIXABAN 2.5 MG (ELIQUIS) TABLET PO SCH ×2 (09:20→20:23)
--- NOTE | 2019-08-22 10:01 | NUR ---
CM/SS: Visited with pt as to plan for discharge Plan: Pt to return home - likely pt will not have any needs Summary: Pt is sitting up in bed with daughter in law at the bedside. Pt is able to give information as to how she ended up here. Pt lives at home alone, with son living next door in [place], [place]. She reports if she is in her yard she can yell at the son, and he can yell back, that is how close she describes they live. Pt has been very independent and has seated walker and other equipment in the home. Pt also calls her sister daily and they check on one another, and if they do not reach one another , they call a family member to check on them. Pt feels as if she will not need anything upon discharge. She is aware of this worker role on the care teams should she need anything. This worker will follow up.
[2019-08-22] MEDS ORDERED: CYAN50TA3 PO (10:24)
[2019-08-22] MEDS ORDERED: LINA5TAB PO (10:24)
[2019-08-22] MEDS ORDERED: APIX2.5T PO (10:24)
[2019-08-22] MEDS ORDERED: VITA80006 PO (10:24)
[2019-08-22] MEDS ORDERED: MULT-1136 PO (10:24)
[2019-08-22] MEDS ORDERED: DIGO125T3 PO (10:24)
[2019-08-22] MEDS ORDERED: ASCO250T17 PO (10:24)
[2019-08-22] MEDS ORDERED: INSU100I34 SQ (10:24)
[2019-08-22] MEDS ORDERED: GARL500C2 PO (10:24)
[2019-08-22] MEDS ORDERED: DAPA5TAB PO (10:24)
[2019-08-22] MEDS ORDERED: VIT1CAPS44 PO (10:24)
[2019-08-22] MEDS ORDERED: SIMV40TA25 PO (10:24)
[2019-08-22] MEDS ORDERED: METO50TA7 PO (10:24)
[2019-08-22] MEDS ORDERED: ALPR0.254 PO (10:24)
[2019-08-22] MEDS ORDERED: FERR-84 PO (10:24)
[2019-08-22] MEDS ORDERED: CHOL10007 PO (10:24)
[2019-08-22] MEDS ORDERED: INSU100I10 SQ (10:47)
--- NOTE | 2019-08-22 10:49 | NUR ---
SPOKE WITH THE PT AND HER DAUGHTER (SHE HAD A MED LIST WITH HER THAT I ATTACHED TO THE CHART) AND CALLED [facility] THEN WENT THRU THE EXT MED HISTORY TO COMPLETE THE MED REC THE FOLLOWING ARE FILL DATES FROM [facility] ORDER: 05-01-2019 ELIQUIS 2.5MG ##180/90DS- I DID DOCUMENT THE PAST DUE FILL ON THE MED REC 07-11-2019 DIGOXIN 125MCG #90/90DS 07-11-2019 METOPROLOL SUCC 25MG #90/90DS 07-15-2019 SIMVASTATIN 40MG #90/90DS 07-17-2019 LANTUS SOLOSTAR #10 PENS/120DS 07-25-2019 TRADJENTA 5MG #90/90DS GLIPIZIDE 5MG WAS FILLED ON 07-11-2019 #180 HOWEVER THE PT SAYS SHE IS NO LONGER TAKING METFORMIN 500MG, BACLOFEN 10MG AND DICLOFENAC GEL ARE LISTED ON THE MED LIST BUT THE PT IS NOT TAKING ANY OF THESE MEDICATIONS ALL OTHER CURRENT MEDICATIONS ARE LISTED ON THE EXT MED HISTORY OTC MEDS: VIT B GARLIC IRON [employer] PRESERVISION VIT A VIT C VIT D
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
[2019-08-22] MEDS ORDERED: ALPRAZolam 0.25 MG (XANAX) TAB PO PRN (11:45)
[2019-08-22 12:59] VITALS: BP 101/53
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
[2019-08-22 16:00] VITALS: BP 134/58
[2019-08-22 20:00] VITALS: BP 124/50
[2019-08-22] MEDS: NS IV 1000 ML 1,000 ML IV SCH (20:24)
[2019-08-22] MEDS ORDERED: SIMvastatin 40 MG (ZOCOR) TAB PO SCH (21:00)
[2019-08-22] MEDS ORDERED: APIXABAN 5 MG (ELIQUIS) TABLET PO SCH (21:00)
[2019-08-23] VITALS: BP 104/49
[2019-08-23] MEDS: NS IV 1000 ML 1,000 ML IV SCH (01:28)
[2019-08-23 03:50] LABS: BASOPHILS # (AUTO) 0.1 10^3/uL (0.0-0.1); BASOPHILS % (AUTO) 1 % (0-10); EOSINOPHILS # (AUTO) 0.3 10^3/uL (0.0-0.3); EOSINOPHILS % (AUTO) 4 % (0-10); HEMATOCRIT 45 % (35-52); HEMOGLOBIN 15.2 G/DL (11.5-16.0); LYMPHOCYTES # (AUTO) 1.4 X 10^3 (1.0-4.0); LYMPHOCYTES % (AUTO) 18 % (12-44); MEAN CORPUSCULAR HEMOGLOBIN 32 PG (25-34); MEAN CORPUSCULAR HGB CONC 34 G/DL (32-36); MEAN CORPUSCULAR VOLUME 95 FL (80-99); MEAN PLATELET VOLUME 11.4 FL (7.4-10.4); MONOCYTES # (AUTO) 0.8 X 10^3 (0.0-1.0); MONOCYTES % (AUTO) 10 % (0-12); NEUTROPHILS # (AUTO) 5.3 X 10^3 (1.8-7.8); NEUTROPHILS % (AUTO) 68 % (42-75); PLATELET COUNT 205 10^3/uL (130-400); WHITE BLOOD COUNT 7.8 10^3/uL (4.3-11.0)
[2019-08-23 04:00] VITALS: BP 112/66
[2019-08-23 04:24] LABS: ALBUMIN 3.9 GM/DL (3.2-4.5)
[2019-08-23 04:25] LABS: POTASSIUM 3.8 MMOL/L (3.6-5.0)
[2019-08-23 04:26] LABS: CALCIUM 9.5 MG/DL (8.5-10.1)
[2019-08-23 04:31] LABS: CREATININE SERUM 1.29 MG/DL (0.60-1.30)
[2019-08-23 08:01] VITALS: BP 107/71
[2019-08-23] MEDS ORDERED: LINAGLIPTIN (TRADJENTA) 5 MG TABLET PO SCH (09:00)
[2019-08-23] MEDS ORDERED: NON-FORMULARY MEDICATION 1 EA EA (Dapagliflozin Propanediol (Farxiga) 5 MG) PO SCH (09:00)
[2019-08-23] MEDS: DOCUSATE SODIUM 100 MG (COLACE) CAP PO PRN ×2 (09:27→09:31)
[2019-08-23] MEDS: APIXABAN 2.5 MG (ELIQUIS) TABLET PO SCH (09:27)
[2019-08-23] MEDS: SENNA W/DOCUSATE (SENOKOT S) TABLET PO SCH (09:34)
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
--- NOTE | 2019-08-23 11:51 | Cardiology Progress Note ---
Subjective Date Seen by Provider: Aug 23, 2019 Time Seen by Provider: 11:50 Subjective/Events-last exam Patient is laying down in bed, feeling better. No new complaint, had a long visit with her and her son, discussed echo findings, discussed treatment plan. Review of Systems General: No Chills, No Night Sweats, No Fatigue, No Malaise, No Appetite, No Other HEENT: No Head Aches, No Visual Changes, No Eye Pain, No Ear Pain, No Dysphasia, No Sinus Congestion, No Post Nasal Drip, No Sore Throat, No Other Pulmonary: No Dyspnea, No Cough, No Pleuritic Chest Pain, No Other Cardiovascular: No: Chest Pain, Palpitations, Orthopnea, Paroxysmal Noc. Dyspnea, Edema, Lt Headedness, Other Objective-Cardiology Exam Last Set of Vital Signs Vital Signs 08/23/19 08:01 Temp 36.1 Pulse 72 Resp 16 B/P (MAP) 107/71 (83) Pulse Ox 95 O2 Delivery Room Air Capillary Refill : Less Than 3 Seconds I&O Intake and Output 08/23/19 00:00 Intake Total 1000 ml Balance 1000 ml Intake Oral 1000 ml # Voids 8 # Bowel Movements 1 General: Alert, Oriented X3, Cooperative HEENT: Atraumatic, PERRLA Neck: Supple, No JVD, No Thyromegaly Lungs: Clear to Auscultation, Normal Air Movement Heart: Regular Rate, Normal S1, Normal S2, No Murmurs Abdomen: Normal Bowel Sounds, Soft, No Tenderness, No Hepatosplenomegaly, No Masses Extremities: No Clubbing, No Cyanosis, No Edema, Normal Pulses, No Tenderness/Swelling Skin: No Rashes, No Breakdown, No Significant Lesion Neuro: Normal Gait, Normal Speech, Strength at 5/5 X4 Ext, Normal Tone, Sensation Intact Psych/Mental Status: Mental Status NL, Mood NL Results Lab Laboratory Tests 08/23/19 03:18 A/P-Cardiology Admission Diagnosis Severe bradycardia Chronic atrial fibrillation Hypertension Debility Assessment/Plan Severe bradycardia, probably due to medication, currently heart rate is better. Heart rate is better, feeling better. 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 No signs of heart failure. Hypertension, continue to monitor blood pressure Chronic persistent atrial fibrillation, maintained on oral anticoagulation, off digoxin at this time. Hyperlipidemia, monitor lipids Depression, anxiety, managed by primary care team Clinical Quality Measures DVT/VTE Risk/Contraindication: Risk Factor Score Per Nursin RFS Level Per Nursing on Admit: 2=Moderate JOSE MANUEL DIOP MD Aug 23, 2019 11:51
[2019-08-23 12:00] VITALS: BP 145/80
--- NOTE | 2019-08-23 12:22 | Physical Therapy Daily Note ---
PT Daily Note-Current Subjective Pt has been up with assistance from family or nursing without AD. Mild unsteadiness noted with no vertigo. Mental Status Patient Orientation: Person, Place, Time, Situation Transfers SCALE: Activities may be completed with or without assistive devices. 8-Mpimcvxbpj-iyzyjbm completes the activity by him/herself with no assistance from a helper. 5-Set-up or Clean-up Assistance-helper sets up or cleans up; patient completes activity. [place] assists only prior to or following the activity. 4-Supervision or Touching Assistance-helper provides verbal cues and/or touching/steadying and/or contact guard assistance as patient completes activity. Assistance may be provided throughout the activity or intermittently. 3-Partial/Moderate Assistance-helper does LESS THAN HALF the effort. [place] lifts, holds or supports trunk or limbs, but provides less than half the effort. 2-Substantial/Maximal Assistance-helper does MORE THAN HALF the effort. [place] lifts or holds trunk or limbs and provides more than half the effort. 2-Bqwmtgwhq-hgwqwz does ALL the effort. Patient does none of the effort to complete the activity. Or, the assistance of 2 or more helpers is required for the patient to complete the activity. If activity was not attempted, code reason: 7-Patient Refused. 9-Not Applicable-not attempted and the patient did not perform the activity before the current illness, exacerbation or injury. 10-Not Attempted due to Environmental Limitations-(lack of equipment, weather restraints, etc.). 88-Not Attempted due to Medical Conditions or Safety Concerns. Roll Left & Right (QC): 6 Sit to Lying (QC): 6 Lying to Sitting/Side of Bed(Q: 6 Sit to Stand (QC): 5 Chair/Hgx-jz-Ocnec Xfer(QC): 5 Weight Bearing Right Lower Extremity: Right Weight Bearing/Tolerated Left Lower Extremity: Left Weight Bearing/Tolerated Gait Training Does the Patient Walk?: Yes Distance: 180ft Walk 10 feet (QC): 5 Walk 50 ft with 2 Turns(QC): 5 Walk 150 ft (QC): 5 Gait Persons Needed: 1 Gait Assistive Device: FWW Pt demonstrated occasional scissoring during ambulation. She does require at least supervision for safe ambulation. Wheelchair Training Does the Pt Use a Wheelchair?: No Exercises Supine Ex: LE Protocol Supine Reps: 20 Assessment Current Status: Good Progress Pt has some instability during gait and would benefit from continued use of the walker. She reports that she has a walker at home. PT Short Term Goals Short Term Goals Time Frame: Aug 29, 2019 Roll Left & Right: 6 Sit to lyin Lying to sitting on side of be: 6 Sit to stand: 6 Chair/fyj-eg-rgcyb transfer: 6 Toilet transfer: 6 Car transfer: 6 Walk 10 feet: 6 Walk 50 feet with two turns: 6 Walk 150 feet: 6 Walking 10ft on uneven surface: 5 1 step (curb): 6 4 steps: 6 12 steps: 5 PT Plan Treatment/Plan Treatment Plan: Continue Plan of Care Treatment Plan: Bed Mobility, Education, Functional Strength, Gait, Therapeutic Exercise Treatment Duration: Aug 29, 2019 Frequency: 6 times per week Estimated Hrs Per Day: .25 hour per day Patient and/or Family Agrees t: Yes Time/GCodes Time In: 09 Time Out: 0950 Total Billed Treatment Time: 25 Total Billed Treatment 1, ex 15, gt 10 ALISA SHERIFF PT Aug 23, 2019 12:22
--- NOTE | 2019-08-23 13:21 | NUR ---
PT WAS OFF FLOOR FOR VITALS
[2019-08-23 13:52] VITALS: BP 145/80
== END 2019-08-23 14:30 | disposition home or self-care (01) | DRG 310 ==
LOC: EDUNIT# 12:55 → ER FS 12:57 → CSD 15:00
PROVIDERS: ADMIT Internal Medicine; ATTEND Internal Medicine
DX: R00.1 Bradycardia, unspecified (principal); R53.83 Other fatigue; R53.1 Weakness; I48.19 Other persistent atrial fibrillation; I10 Essential (primary) hypertension; S06.9X9S Unspecified intracranial injury with loss of consciousness of unspecified duration, sequela; R26.81 Unsteadiness on feet; E11.9 Type 2 diabetes mellitus without complications; Z79.01 Long term (current) use of anticoagulants; E78.5 Hyperlipidemia, unspecified; F32.9 Major depressive disorder, single episode, unspecified; F41.9 Anxiety disorder, unspecified
CPT/HCPCS: 36415; 80053; 80061; 80162; 81000; 82962; 83735; 83880; 84443; 84484; 85025; 85027; 93005; 93306

== ENCOUNTER 2021-02-17 16:23 | Emergency (ER) | payer MEDICARE ==
[~2021-02-17 16:23] MED LIST: ALPR.25T PO; APIX2.5T PO; ASCO250T17 PO; CHOL10007 PO; CYAN50TA3 PO; DAPA5TAB PO; DIGO125T3 PO; FERR-84 PO; GARL500C2 PO; INSU100I10 SQ; INSU100I34 SQ; LINA5TAB PO; METO50TA7 PO; MULT-1136 PO; SIMV40TA25 PO; VIT1CAPS44 PO; VITA80006 PO
--- OUTSIDE RECORDS SUMMARY | 2021-02-17 16:28 | XMS REPORT | Clinical Summary ---
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
[2021-02-17] MEDS ORDERED: TETANUS,DIPTH,PERTUSS P/F (BOOSTRIX) 0.5 ML VIAL IM ONE (16:45)
[2021-02-17] MEDS ORDERED: LACTATED RINGERS 1,000 ML IV SCH (16:45)
--- NOTE | 2021-02-17 16:53 | ED General ---
General Chief Complaint: Trauma-Non Activation Stated Complaint: FELL,RT SHOULDER PAIN History of Present Illness Date Seen by Provider: Feb 17, 2021 Time Seen by Provider: 16:49 Initial Comments Patient presenting to the emergency department for evaluation of generalized weakness malaise fatigue dizziness. Patient has not been able to ambulate safely as she says that her legs will not move or give her strength and she fell twice today with a second fall causing a abrasion to her right elbow and pain to her right shoulder. Patient denies head neck chest abdomen back or other extremity pain and no unilateral weakness numbness or tingling. Patient says she has been taking her medications as prescribed. She is on Eliquis for atrial fibrillation. Her blood pressure is low and she thinks she may have been eating and drinking less. She is in no acute distress. Allergies and Home Medications Allergies Coded Allergies: aspirin (Verified Allergy, Mild, Hives, 08/21/19) cerivastatin (Verified Allergy, Mild, Hives, 08/21/19) ciprofloxacin (Verified Allergy, Mild, Nausea, 08/21/19) fenofibrate (Verified Allergy, Mild, Rash, 08/21/19) sulfamethoxazole (Verified Allergy, Mild, Rash, 08/21/19) trimethoprim (Verified Allergy, Mild, Rash, 08/21/19) codeine (Verified Allergy, Unknown, Nausea, 08/21/19) Patient Home Medication List Home Medication List Reviewed: Yes ALPRAZolam (Xanax Tablet) 0.25 Mg Tablet, 0.125 MG PO BID PRN for ANXIETY, (Reported) Entered as Reported by: ADE DELAROSA on 08/22/19 1024 Apixaban (Eliquis) 2.5 Mg Tablet, 2.5 MG PO BID, (Reported) Entered as Reported by: ADE DELAROSA on 08/22/19 1024 Ascorbic Acid (Vitamin C) 250 Mg Tab.chew, 250 MG PO DAILY, (Reported) Entered as Reported by: ADE DELAROSA on 08/22/19 1024 Cholecalciferol (Vitamin D3) (Vitamin D3) 25 Mcg Capsule, 25 MCG PO DAILY, (Reported) Entered as Reported by: ADE DELAROSA on 08/22/19 1024 Cyanocobalamin (Vitamin B-12) (Vitamin B-12) 50 Mcg Tablet, 50 MCG PO DAILY, (Reported) Entered as Reported by: ADE DELAROSA on 08/22/19 1024 Dapagliflozin Propanediol (Farxiga) 5 Mg Tablet, 5 MG PO DAILY, (Reported) Entered as Reported by: ADE DELAROSA on 08/22/19 1024 Ferrous Sulfate (Iron) 325 Mg Tablet, 325 MG PO DAILY, (Reported) Entered as Reported by: ADE DELAROSA on 08/22/19 1024 Garlic (Garlic) 500 Mg Capsule, 500 MG PO DAILY, (Reported) Entered as Reported by: ADE DELAROSA on 08/22/19 1024 Insulin Glargine,Hum.rec.anlog (Lantus Solostar) 100 Unit/1 Ml Insuln.pen, 25 UNIT SQ DAILY, (Reported) Entered as Reported by: ADE DELAROSA on 08/22/19 1047 Linagliptin (Tradjenta) 5 Mg Tablet, 5 MG PO DAILY, (Reported) Entered as Reported by: ADE DELAROSA on 08/22/19 1024 Multivitamin (Multivitamin) 1 Each Tablet, 1 EACH PO DAILY, (Reported) Entered as Reported by: ADE DELAROSA on 08/22/19 1024 Simvastatin (Simvastatin) 40 Mg Tablet, 40 MG PO HS, (Reported) Entered as Reported by: ADE DELAROSA on 08/22/19 1024 Vit C/E/Zn/Coppr/Lutein/Zeaxan (Preservision Areds 2 Softgel) 1 Each Capsule, 1 EACH PO BID, (Reported) Entered as Reported by: ADE DELAROSA on 08/22/19 1024 Vitamin A (Vitamin A) 8,000 Unit Capsule, 8,000 UNIT PO DAILY, (Reported) Entered as Reported by: ADE DELAROSA on 08/22/19 1024 Review of Systems Review of Systems Constitutional: dizziness, malaise, weakness EENTM: no symptoms reported Respiratory: no symptoms reported Cardiovascular: no symptoms reported Gastrointestinal: no symptoms reported Musculoskeletal: joint pain Skin: other (Abrasion) Psychiatric/Neurological: No Symptoms Reported All Other Systems Reviewed Negative Unless Noted: Yes Past Dhyqqlv-Pwtnly-Smvxpz Hx Seasonal Allergies Seasonal Allergies: No Past Medical History Eye Surgery, Orthopedic Atrial Fibrillation, Hypertension Traumatic Brain Injury Diabetes, Non-Insulin dep Physical Exam Vital Signs Vital Signs - First Documented 02/17/21 17:55 Temp 36.4 Pulse 90 Resp 16 B/P (MAP) 119/54 (75) Pulse Ox 95 O2 Delivery Room Air Capillary Refill : Height, Weight, BMI Height: '" Weight: lbs. oz. kg; 24.91 BMI Method: General Appearance: No Apparent Distress, Chronically ill HEENT: PERRL/EOMI Neck: Supple Respiratory: Lungs Clear, No Respiratory Distress Cardiovascular: Regular Rate, Rhythm Gastrointestinal: Non Tender, Soft Back: Normal Inspection Extremity: Normal Capillary Refill, No Pedal Edema Neurologic/Psychiatric: Alert, Oriented x3, No Motor/Sensory Deficits Skin: Warm/Dry Focused Exam Lactate Level 02/17/21 17:25: Lactic Acid Level 1.54 Lactic Acid Level Laboratory Tests Test 02/17/21 17:25 Lactic Acid Level 1.54 MMOL/L (0.50-2.00) Progress/Results/Core Measures Suspected Sepsis SIRS Temperature: Pulse: Respiratory Rate: Laboratory Tests 02/17/21 17:25: White Blood Count 11.3H Blood Pressure / Mean: 02/17/21 17:25: Lactic Acid Level 1.54 Laboratory Tests 02/17/21 17:25: Creatinine 1.60H, INR Comment 1.2, Platelet Count 167, Total Bilirubin 0.7 Results/Orders Lab Results Laboratory Tests Test 02/17/21 17:25 02/17/21 18:42 Range/Units White Blood Count 11.3 H 4.3-11.0 10^3/uL Red Blood Count 4.85 3.80-5.11 10^6/uL Hemoglobin 15.6 11.5-16.0 g/dL Hematocrit 47 35-52 % Mean Corpuscular Volume 97 80-99 fL Mean Corpuscular Hemoglobin 32 25-34 pg Mean Corpuscular Hemoglobin Concent 33 32-36 g/dL Red Cell Distribution Width 13.8 10.0-14.5 % Platelet Count 167 130-400 10^3/uL Mean Platelet Volume 11.7 9.0-12.2 fL Immature Granulocyte % (Auto) 0 % Neutrophils (%) (Auto) 86 H 42-75 % Lymphocytes (%) (Auto) 5 L 12-44 % Monocytes (%) (Auto) 8 0-12 % Eosinophils (%) (Auto) 0 0-10 % Basophils (%) (Auto) 1 0-10 % Neutrophils # (Auto) 9.7 H 1.8-7.8 X 10^3 Lymphocytes # (Auto) 0.5 L 1.0-4.0 X 10^3 Monocytes # (Auto) 0.9 0.0-1.0 X 10^3 Eosinophils # (Auto) 0.0 0.0-0.3 10^3/uL Basophils # (Auto) 0.1 0.0-0.1 10^3/uL Immature Granulocyte # (Auto) 0.0 0.0-0.1 10^3/uL Prothrombin Time 15.7 H 12.2-14.7 SEC INR Comment 1.2 0.8-1.4 Activated Partial Thromboplast Time 29 24-35 SEC Sodium Level 134 L 135-145 MMOL/L Potassium Level 4.7 3.6-5.0 MMOL/L Chloride Level 97 L 98-107 MMOL/L Carbon Dioxide Level 21 21-32 MMOL/L Anion Gap 16 H 5-14 MMOL/L Blood Urea Nitrogen 30 H 7-18 MG/DL Creatinine 1.60 H 0.60-1.30 MG/DL Estimat Glomerular Filtration Rate 30 BUN/Creatinine Ratio 19 Glucose Level 205 H 70-105 MG/DL Lactic Acid Level 1.54 0.50-2.00 MMOL/L Calcium Level 9.4 8.5-10.1 MG/DL Corrected Calcium 9.5 8.5-10.1 MG/DL Total Bilirubin 0.7 0.1-1.0 MG/DL Aspartate Amino Transf (AST/SGOT) 30 5-34 U/L Alanine Aminotransferase (ALT/SGPT) 23 0-55 U/L Alkaline Phosphatase 100 40-136 U/L Troponin I < 0.30 <0.30 NG/ML Pro-B-Type Natriuretic Peptide 4508.0 H <75.0 PG/ML Total Protein 7.5 6.4-8.2 GM/DL Albumin 3.9 3.2-4.5 GM/DL Lipase 45 8-78 U/L My Orders Orders - TAHIR PEREZ DO Iv/Invasive Line Insertion .IV start (02/17/21 16:38) Ct Head Wo (02/17/21 16:38) Cbc With Automated Diff (02/17/21 16:38) Comprehensive Metabolic Panel (02/17/21 16:38) Lactic Acid Analyzer (02/17/21 16:38) Blood Culture (02/17/21 16:38) Ua Culture If Indicated (02/17/21 16:38) Chest 1 View Ap/Pa Only (02/17/21 16:38) Ekg Tracing (02/17/21 16:38) Troponin I Fs (02/17/21 16:38) Protime With Inr (02/17/21 16:38) Probnp Fs (02/17/21 16:38) Partial Thromboplastin Time (02/17/21 16:38) Lipase (02/17/21 16:38) Lactated Ringers (Lr 1000 Ml Iv Solution (02/17/21 16:45) Dipht,Pertuss(Acell),Tet Adult (Boostrix (02/17/21 16:45) Shoulder 3 View Right (02/17/21 16:38) Blood Culture (02/17/21 16:43) Ns Iv 1000 Ml (Sodium Chloride 0.9%) (02/17/21 17:17) Manual Differential (02/17/21 17:25) Ns Iv 1000 Ml (Sodium Chloride 0.9%) (02/17/21 18:30) Medications Given in ED Current Medications Medications Dose Ordered Sig/Clive Route Start Time Stop Time Status Last Admin Dose Admin Diphtheria/ Tetanus/Acell Pertussis 0.5 ml ONCE ONCE IM 02/17/21 16:45 02/17/21 16:46 DC 02/17/21 17:30 0.5 ML Sodium Chloride 1,000 ml @ ud STK-MED ONCE .ROUTE 02/17/21 17:17 02/17/21 17:21 DC 02/17/21 17:29 999 MLS/HR Vital Signs/I&O 02/17/21 17:55 Temp 36.4 Pulse 90 Resp 16 B/P (MAP) 119/54 (75) Pulse Ox 95 O2 Delivery Room Air Capillary Refill : Progress Note : Progress Note Patient with nonspecific generalized malaise fatigue and weakness in the setting of hypotension. I will check labs imaging treat with IV fluids and reassess. Patient with findings of dehydration with new onset renal insufficiency. She also does have leukocytosis. Urine is pending at this time. I asked the patient if she was feeling better now that her blood pressure somewhat improved and if she would be able to go home however she says that she still feels very weak and would be unable to walk and says she does not feel safe going home and family concurs that they cannot take care of her at home as she lives by herself. Patient is requesting admission. I spoke to Dr. Chapa and she agreed to accept the patient at [facility]. Patient will be continued on IV fluids and antibiotics will be added if there is any signs of a urinary tract infection. Departure Impression Primary Impression: Sprain of shoulder, right Qualified Codes: S43.401A - Unspecified sprain of right shoulder joint, initial encounter Additional Impressions: Dehydration Renal insufficiency Failure to thrive in adult Leukocytosis Hypotension Disposition: 02 XFER SHT-TRM HOSP Condition: Improved Transfer Transfer Reason: Exceeds level of care Transfer Facility: [facility] Method of Transfer: EMS Departure-Patient Inst. Referrals: SELF,KAI VASQUEZ (PCP/Family) Primary Care Physician TAHIR PEREZ DO Feb 17, 2021 16:53
--- NOTE | 2021-02-17 17:10 | Diagnostic Imaging Report ---
INDICATION: Weakness Portable chest 4:54 PM Heart size and pulmonary vascularity are normal. Lungs are clear. There are no effusions or pneumothoraces. IMPRESSION: No acute abnormalities in the chest. No appreciable change compared to 08/12/2019. Dictated by: Dictated on workstation # [id number]
--- NOTE | 2021-02-17 17:10 | Diagnostic Imaging Report ---
PROCEDURE: CT head without contrast. TECHNIQUE: Multiple contiguous axial images were obtained through the brain without the use of intravenous contrast. Auto Exposure Controls were utilized during the CT exam to meet ALARA standards for radiation dose reduction. INDICATION: Frequent falls, weakness. FINDINGS: The ventricles are normal in size, shape and position. There are no masses or hemorrhages. There are no extra-axial fluid collections. IMPRESSION: Negative CT head. Dictated by: Dictated on workstation # [id number]
--- NOTE | 2021-02-17 17:14 | Diagnostic Imaging Report ---
INDICATION: Right shoulder injury from a fall. FINDINGS: Three views of the right shoulder do not show any displaced fractures. There is no dislocation. There are mild degenerative changes of the acromioclavicular joint. IMPRESSION: No acute abnormalities seen in the right shoulder. Dictated by: Dictated on workstation # [id number]
[2021-02-17] MEDS ORDERED: NS IV 1000 ML 1,000 ML ONE (17:17)
[2021-02-17 17:48] LABS: HEMATOCRIT 47 % (35-52); HEMOGLOBIN 15.6 g/dL (11.5-16.0); MEAN CORPUSCULAR HEMOGLOBIN 32 pg (25-34); MEAN CORPUSCULAR HGB CONC 33 g/dL (32-36); MEAN CORPUSCULAR VOLUME 97 fL (80-99); MEAN PLATELET VOLUME 11.7 fL (9.0-12.2); PLATELET COUNT 167 10^3/uL (130-400); WHITE BLOOD COUNT 11.3 10^3/uL (4.3-11.0)
[2021-02-17 17:49] LABS: BASOPHILS # (AUTO) 0.1 10^3/uL (0.0-0.1); BASOPHILS % (AUTO) 1 % (0-10); EOSINOPHILS % (AUTO) 0 % (0-10); LYMPHOCYTES # (AUTO) 0.5 X 10^3 (1.0-4.0); LYMPHOCYTES % (AUTO) 5 % (12-44); MONOCYTES # (AUTO) 0.9 X 10^3 (0.0-1.0); MONOCYTES % (AUTO) 8 % (0-12); NEUTROPHILS # (AUTO) 9.7 X 10^3 (1.8-7.8); NEUTROPHILS % (AUTO) 86 % (42-75)
[2021-02-17 18:00] LABS: INR 1.2 (0.8-1.4); PROTHROMBIN TIME PATIENT 15.7 SEC (12.2-14.7)
[2021-02-17 18:17] LABS: CARBON DIOXIDE 21 MMOL/L (21-32); CHLORIDE 97 MMOL/L (98-107); POTASSIUM 4.7 MMOL/L (3.6-5.0); SODIUM 134 MMOL/L (135-145)
[2021-02-17 18:18] LABS: ALANINE AMINOTRANSFERASE 23 U/L (0-55); ALBUMIN 3.9 GM/DL (3.2-4.5); ALKALINE PHOSPHATASE 100 U/L (40-136); BILIRUBIN,TOTAL 0.7 MG/DL (0.1-1.0); BUN/CREATININE RATIO 19; CALCIUM 9.4 MG/DL (8.5-10.1); GFR ESTIMATED 30; GLUCOSE 205 MG/DL (70-105); LIPASE 45 U/L (8-78); TOTAL PROTEIN 7.5 GM/DL (6.4-8.2)
[2021-02-17] MEDS ORDERED: NS IV 1000 ML 1,000 ML IV SCH (18:30)
[2021-02-17 18:56] LABS: BILIRUBIN,URINE NEGATIVE (NEGATIVE); CLARITY,URINE CLEAR; COLOR,URINE YELLOW; GLUCOSE, URINE (UA) 3+ (NEGATIVE); KETONES,URINE 1+ (NEGATIVE); LEUKOCYTE ESTERASE ,URINE NEGATIVE (NEGATIVE); NITRITE,URINE NEGATIVE (NEGATIVE); PROTEIN,URINE NEGATIVE (NEGATIVE)
[2021-02-17 19:22] LABS: BACTERIA,URINE NEGATIVE /HPF; HYALINE CASTS, URINE RARE /LPF; RBC,URINE RARE /HPF; SQUAMOUS EPITHELIAL CELL,UR RARE /HPF
[2021-02-17] MEDS ORDERED: HYDROcodone/APAP 5 MG/325 MG (LORTAB) TAB PO ONE (19:30)
[2021-02-17 19:32] VITALS: BP 132/56
[2021-02-17 19:36] LABS: BAND NEUTROPHILS 4 %; BASOPHILS % (MANUAL) 0 %; EOSINOPHILS % (MANUAL) 0 %; LYMPHOCYTES % (MANUAL) 8 %; MONOCYTES % (MANUAL) 4 %; NEUTROPHILS % (MANUAL) 84 %
[2021-02-17] MEDS ORDERED: NS IV 1000 ML 1,000 ML IV ONE (19:45)
== END 2021-02-17 20:15 | disposition short-term general hospital (02) ==
LOC: EDUNIT# 16:23 → ER FS 16:25
DX: S43.401A Unspecified sprain of right shoulder joint, initial encounter (principal); S50.311A Abrasion of right elbow, initial encounter; E86.0 Dehydration; N28.9 Disorder of kidney and ureter, unspecified; R62.7 Adult failure to thrive; D72.829 Elevated white blood cell count, unspecified; I95.9 Hypotension, unspecified; I10 Essential (primary) hypertension; I48.91 Unspecified atrial fibrillation; E11.9 Type 2 diabetes mellitus without complications; Z87.820 Personal history of traumatic brain injury; Z79.01 Long term (current) use of anticoagulants; Z79.899 Other long term (current) drug therapy
CPT/HCPCS: 36415; 70450; 71045; 73030; 80053; 81000; 83605; 83690; 83880; 84484; 85007; 85027; 85610; 85730; 87040; 90715; 93005

== ENCOUNTER 2021-02-18 15:47 | Inpatient (IN) | payer MEDICARE ==
[~2021-02-18] VITALS: Ht 154.4 cm; Wt 65.1 kg
[2021-02-18] MEDS ORDERED: CALCIUM CARBONATE 500 MG (TUMS) TAB.CHEW PO PRN (16:00)
[2021-02-18] MEDS ORDERED: DOCUSATE SODIUM 100 MG (COLACE) CAP PO PRN (16:00)
[2021-02-18] MEDS ORDERED: MELATONIN 3 MG TABLET PO PRN (16:00)
[2021-02-18] MEDS ORDERED: ALPRAZolam 0.25 MG (XANAX) TAB PO PRN ×2 (16:00→19:30)
[2021-02-18] MEDS ORDERED: BISACODYL 10 MG SUPP (DULCOLAX) PR PRN (16:00)
[2021-02-18] MEDS ORDERED: diphenhydrAMINE 25 MG TAB (BENADRYL) PO PRN (16:00)
[2021-02-18] MEDS ORDERED: LOPERAMIDE 2 MG (IMODIUM) TABLET PO PRN (16:00)
[2021-02-18] MEDS ORDERED: FLEET ENEMA ADULT 1 EA BTL PR PRN (16:00)
[2021-02-18] MEDS ORDERED: ONDANSETRON 4 MG (ZOFRAN) ORAL DISSOLVE TAB PO PRN (16:00)
[2021-02-18] MEDS ORDERED: NALOXONE 0.4 MG/ML 1 ML (NARCAN) VIAL IV PRN (16:00)
[2021-02-18] MEDS ORDERED: LACTULOSE SYRUP 10GM/15ML (ENULOSE) 30ML UDC PO PRN (16:00)
[2021-02-18 17:40] VITALS: BP 125/77
[2021-02-18 20:00] VITALS: BP 132/78
[2021-02-18] MEDS ORDERED: NON-FORMULARY MEDICATION 1 EA EA (Vit C/E/Zn/Coppr/Lutein/Zeaxan (Preservision Areds 2 Sof PO SCH (21:00)
--- NOTE | 2021-02-18 21:31 | PM&R Post Admission Assessment ---
PM&R Date of Visit: Feb 18, 2021 Time of Visit: 18:00 History of Present Illness CC: Weakness and falls HPI: This is an 89yoWF clinic Pt of Dr. Bedolla who presented to inpatient rehab [place] [facility] [place] due [place] acute kidney injury, dehydration and poor appetite with a fall and soft tissue injury of the right arm. No fracture was revealed on X-rays. Currently she is in need of strengthening and stabilization in order to return home. Her son lives next door to her and will increase ADL independence and prevent falls in order to return back to independent living Past Weiayry-Tiljqx-Ttomku Hx Past Med/Social Hx: Reviewed Nursing Past Med/Soc Hx, Reviewed and Corrections made Patient Social History Marrital Status: single Employed/Student: retired Alcohol Use: Denies Use Smoking Status: Never a Smoker 2nd Hand Smoke Exposure: No Recent Foreign Travel: No Contact w/other who traveled: No Recent Hopitalizations: No Seasonal Allergies Seasonal Allergies: No Past Medical History Surgeries: Eye Surgery, Orthopedic Cardiac: Atrial Fibrillation, Hypertension Neurological: Traumatic Brain Injury Endocrine: Diabetes, Non-Insulin dep PM&R Allergy/Meds/Data Review Allergies Coded Allergies: aspirin (Verified Allergy, Mild, Hives, 08/21/19) cerivastatin (Verified Allergy, Mild, Hives, 08/21/19) ciprofloxacin (Verified Allergy, Mild, Nausea, 08/21/19) fenofibrate (Verified Allergy, Mild, Rash, 08/21/19) sulfamethoxazole (Verified Allergy, Mild, Rash, 08/21/19) trimethoprim (Verified Allergy, Mild, Rash, 08/21/19) codeine (Verified Allergy, Unknown, Nausea, 08/21/19) Home Medications Scheduled Apixaban (Eliquis), 2.5 MG PO BID, (Reported) Ascorbic Acid (Vitamin C), 250 MG PO DAILY, (Reported) Cholecalciferol (Vitamin D3) (Vitamin D3), 25 MCG PO DAILY, (Reported) Cyanocobalamin (Vitamin B-12) (Vitamin B-12), 50 MCG PO DAILY, (Reported) Dapagliflozin Propanediol (Farxiga), 5 MG PO DAILY, (Reported) Ferrous Sulfate (Iron), 325 MG PO DAILY, (Reported) Garlic (Garlic), 500 MG PO DAILY, (Reported) Insulin Glargine,Hum.rec.anlog (Lantus Solostar), 25 UNIT SQ DAILY, (Reported) Linagliptin (Tradjenta), 5 MG PO DAILY, (Reported) Multivitamin (Multivitamin), 1 EACH PO DAILY, (Reported) Simvastatin (Simvastatin), 40 MG PO HS, (Reported) Vit C/E/Zn/Coppr/Lutein/Zeaxan (Preservision Areds 2 Softgel), 1 EACH PO BID, (Reported) Vitamin A (Vitamin A), 8,000 UNIT PO DAILY, (Reported) Scheduled PRN ALPRAZolam (Xanax Tablet), 0.125 MG PO BID PRN for ANXIETY, (Reported) Current Medications Current Medications Reviewed Laboratory Data Laboratory Tests 02/18/21 17:44: Glucometer 188H 02/18/21 20:04: Glucometer 166H Review of Systems Constitutional: see HPI, malaise, weakness EENTM: no symptoms reported Respiratory: no symptoms reported Cardiovascular: no symptoms reported Gastrointestinal: no symptoms reported Genitourinary: no symptoms reported Musculoskeletal: back pain, joint pain Skin: no symptoms reported Psychiatric/Neurological: No Symptoms Reported All Other Systems Reviewed Negative Unless Noted: Yes Physical Exam Physical Exam Vital Signs Vital Signs - First Documented 02/18/21 02/18/21 17:40 17:58 Temp 37.0 Pulse 72 Resp 16 B/P (MAP) 125/77 (93) Pulse Ox 99 O2 Delivery Room Air O2 Flow Rate 99.00 Capillary Refill : Height, Weight, BMI Height: '" Weight: lbs. oz. kg; 24.45 BMI Method: General Appearance: No Apparent Distress, WD/WN, Chronically ill Eyes: Bilateral Eye Normal Inspection, Bilateral Eye PERRL HEENT: PERRL/EOMI, Normal ENT Inspection, Pharynx Normal Neck: Full Range of Motion, Normal Inspection, Non Tender, Supple, Carotid Bruit Respiratory: Chest Non Tender, Lungs Clear, Normal Breath Sounds, No Accessory Muscle Use, No Respiratory Distress Cardiovascular: Regular Rate, Rhythm, No Edema, No Gallop, No JVD, No Murmur, Normal Peripheral Pulses Gastrointestinal: Normal Bowel Sounds, No Organomegaly, No Pulsatile Mass, Non Tender, Soft Back: Normal Inspection, No CVA Tenderness, No Vertebral Tenderness Extremity: Normal Capillary Refill, Normal Inspection, Normal Range of Motion (Except right arm in sling), Non Tender, No Calf Tenderness, No Pedal Edema Neurologic/Psychiatric: Alert, Oriented x3, No Motor/Sensory Deficits, Normal Mood/Affect, travel services professional II-XII Norm as Tested, Motor Weakness (Generalized) Skin: Normal Color, Warm/Dry Lymphatic: No Adenopathy PM&R Medical Assessment & Plan REHAB/MEDICAL ASSESSMENT AND PLAN: REHAB IMPAIRMENT GROUP: Debility ETIOLOGIC DIAGNOSIS: Debility The comorbidities that impact the patients function and/or functional outcome by: Advanced age, fall risk, dehydration, appetite loss, weight loss REHAB PLAN: The patient is being admitted to our comprehensive inpatient rehabilitation facility and can tolerate the intensity of service consisting of at least: 180 minutes of therapy a day, 5 out of 7 days a week Rehab treatment will consist of: PT and OT will focus on regaining function with assistive device and increase independence in ADLs in order to return home The patient/family has a good understanding of our discharge process and will benefit from an interdisciplinary inpatient rehabilitation program. The patient has potential to make improvement and is in need of at least two of the following multidisciplinary therapies including but not limited to physical, occupational, speech, and prosthetics and orthotics. Additionally the patient will need services from respiratory, nutritional services, wound care, psychology, etc. (Customize this to each patient). Given the patients complex condition and risk of further medical complications, rehabilitation services cannot be safely or effectively provided at a lower level of care such as a shelter facility. BARRIERS TO DISCHARGE: Advanced age and fall risk ESTIMATED LOS: 7 days DISPOSITION: Home RELEVANT CHANGES SINCE PREADMISSION SCREENING: I have compared the patients medical and functional status at the time of the preadmission screening and there are: No changes PROGNOSIS: Good REHABILITATION GOALS: 1. PT and OT will focus on regaining function with assistive device and increase independence in ADLs in order to return home All the above goals were reviewed with the patient and he/she is in agreement. By signing this document, I acknowledge that I have personally performed a full physical examination on this patient within 24 hours of admission to this inpatient rehabilitation facility and have determined the patient to be able to tolerate the above course of treatment at an intensive level for a reasonable period of time. I will be completing a detailed individualized Plan of Care for this patient by day #4 of the patients stay based upon the Preadmission Screen, the Post-Admission Evaluation, and the therapy evaluations. Admission Dx/Comorbidities: (1) Debility ICD Codes: R53.81 - Other malaise (2) Dehydration Status: Acute ICD Codes: E86.0 - Dehydration (3) Renal insufficiency Status: Acute ICD Codes: N28.9 - Disorder of kidney and ureter, unspecified Assessment/Plan Assessment and Plan Assess & Plan/Chief Complaint Assessment: Debility Status post acute kidney injury resolved with IV fluid Hypertension Chronic atrial fibrillation Oral anticoagulation Right arm injury History of traumatic brain injury Plan: Encourage oral nutrition Inpatient rehab protocol Monitor closely WILLIAM RANDALL DO Feb 18, 2021 21:31
[2021-02-18] MEDS: polyethylene glycoL POWDER 17 GM (MIRALAX) PACK PO SCH (21:35)
[2021-02-18] MEDS: inSUlin ASPART (NovoLOG) 1 UNIT/0.01 ML (CHARGE PER UNIT) SC SCH (21:36)
[2021-02-18] MEDS: SENNA W/DOCUSATE (SENOKOT S) TABLET PO SCH (21:37)
[2021-02-18] MEDS: APIXABAN 2.5 MG (ELIQUIS) TABLET PO SCH (21:37)
[2021-02-18] MEDS: SIMvastatin 40 MG (ZOCOR) TAB PO SCH (21:37)
[2021-02-18] MEDS: DOCUSATE SODIUM 100 MG (COLACE) CAP PO SCH (21:37)
[2021-02-18] MEDS: ACETAMINOPHEN 500 MG TAB (TYLENOL) PO PRN (21:45)
[2021-02-19] MEDS: inSUlin ASPART (NovoLOG) 1 UNIT/0.01 ML (CHARGE PER UNIT) SC SCH ×5 (06:13→21:00)
[2021-02-19] MEDS: MULTIVIT W/MINERALS TAB (THERAGRAN M) PO SCH (06:20)
[2021-02-19 06:35] LABS: PLATELET COUNT 133 10^3/uL (130-400)
[2021-02-19 06:37] LABS: BASOPHILS % (AUTO) 1 % (0-10); EOSINOPHILS # (AUTO) 0.2 10^3/uL (0.0-0.3); EOSINOPHILS % (AUTO) 5 % (0-10); HEMATOCRIT 44 % (35-52); HEMOGLOBIN 14.1 g/dL (11.5-16.0); LYMPHOCYTES # (AUTO) 0.8 10^3/uL (1.0-4.0); LYMPHOCYTES % (AUTO) 18 % (12-44); MEAN CORPUSCULAR HEMOGLOBIN 32 pg (25-34); MEAN CORPUSCULAR HGB CONC 32 g/dL (32-36); MEAN CORPUSCULAR VOLUME 99 fL (80-99); MEAN PLATELET VOLUME 11.3 fL (9.0-12.2); MONOCYTES # (AUTO) 0.4 10^3/uL (0.0-1.0); MONOCYTES % (AUTO) 9 % (0-12); NEUTROPHILS # (AUTO) 3.1 10^3/uL (1.8-7.8); NEUTROPHILS % (AUTO) 67 % (42-75); WHITE BLOOD COUNT 4.6 10^3/uL (4.3-11.0)
[2021-02-19 06:56] LABS: ALBUMIN 3.4 GM/DL (3.2-4.5)
[2021-02-19 06:57] LABS: POTASSIUM 4.2 MMOL/L (3.6-5.0)
[2021-02-19 06:58] LABS: CALCIUM 8.6 MG/DL (8.5-10.1)
[2021-02-19 06:59] LABS: TOTAL PROTEIN 6.3 GM/DL (6.4-8.2)
[2021-02-19 07:01] LABS: BILIRUBIN,TOTAL 0.6 MG/DL (0.1-1.0)
[2021-02-19 07:03] LABS: CREATININE SERUM 1.01 MG/DL (0.60-1.30)
[2021-02-19] MEDS: ASCORBIC ACID (VIT C) 500 MG TABLET PO SCH (08:26)
[2021-02-19] MEDS: VITAMIN D3 25 MCG (1,000 UNITS) TABLET PO SCH (08:26)
[2021-02-19] MEDS: FERROUS SULF 325 MG (IRON) TAB PO SCH (08:26)
[2021-02-19] MEDS: APIXABAN 2.5 MG (ELIQUIS) TABLET PO SCH (08:26)
[2021-02-19] MEDS: SENNA W/DOCUSATE (SENOKOT S) TABLET PO SCH ×2 (08:27→21:00)
[2021-02-19] MEDS: polyethylene glycoL POWDER 17 GM (MIRALAX) PACK PO SCH ×2 (08:27→21:00)
[2021-02-19] MEDS: DOCUSATE SODIUM 100 MG (COLACE) CAP PO SCH ×2 (08:27→21:34)
--- NOTE | 2021-02-19 08:30 | Occupational Therapy Eval ---
OT Evaluation-General/PLF Medical Diagnosis Admission Date Feb 18, 2021 at 17:28 Medical Diagnosis: debility, hx TBI Onset Date: Feb 17, 2021 Therapy Diagnosis Therapy Diagnosis: decr self care, decr funct mobility, decr activity tolerance, weakness Precautions Precautions/Isolations: Fall Prevention, Standard Precautions Referral Physician: Sammi Thibodeaux Reason: Evaluation/Treatment Medical History Pertinent Medical History: Atrial Fib, DM Additional Medical History Hx TBI. Old R wrist fx with surgery, eye surgeries Current History Pt reported that she fell at home twice. Was admitted to [facility] for observation, with acute kidney injury, dehydration, poor appetite. Has bruise on R upper arm and reported soreness along R scapula medial border. Reviewed History: Yes Social History Home: Single Level Current Living Status: Alone She has two steps in her home into kitchen and bathroom but has grab bars by [facility] doorway. Son lives next to her. ADL-Prior Level of Function SCALE: Activities may be completed with or without assistive devices. 1-Gcdewqntrg-bakxaxr completes the activity by him/herself with no assistance from a helper. 5-Set-up or Clean-up Assistance-helper sets up or cleans up; patient completes activity. [place] assists only prior to or following the activity. 4-Supervision or Touching Assistance-helper provides verbal cues and/or touching/steadying and/or contact guard assistance as patient completes activity. Assistance may be provided throughout the activity or intermittently. 3-Partial/Moderate Assistance-helper does LESS THAN HALF the effort. [place] lifts, holds or supports trunk or limbs, but provides less than half the effort. 2-Substantial/Maximal Assistance-helper does MORE THAN HALF the effort. [place] lifts or holds trunk or limbs and provides more than half the effort. 8-Ygsxmjand-wbodht does ALL the effort. Patient does none of the effort to c omplete the activity. Or, the assistance of 2 or more helpers is required for the patient to complete the activity. If activity was not attempted, code reason: 7-Patient Refused. 9-Not Applicable-not attempted and the patient did not perform the activity before the current illness, exacerbation or injury. 10-Not Attempted due to Environmental Limitations-(lack of equipment, weather restraints, etc.). 88-Not Attempted due to Medical Conditions or Safety Concerns. ADL PLOF Comments Pt reported that she is independent with all basic ADLs and IADLs. 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 She no longer drives, by her choice. Self Care: Independent Functional Cognition: Independent Occupation: retired Drive Self: No OT Current Status Subjective Pt seen in room, for OT, up in recliner. Agreeable. Pain rated 0/10 although she reported some occasional discomfort R upper arm and R scapula. Appearance Alert, cooperative Mental Status/Objective Patient Orientation: Person, Place, Time, Situation Current Glasses/Contacts: Yes Hearing Aids: No Dentures/Partials: Yes (uppers and lowers) Hand Dominance: Right Upper Extremity ROM Grossly WFL bilat Upper Extremity Sensation Pt reported occasional tingling R hand from old wrist fx but no problems at this time Upper Extremity Strength Grossly 4/5 bilat ADL-Treatment ADL-Current Pt reported that there are some foods that she cannot eat without her dentures but she can eat anything with them. She said that she was able to feed herself this morning without any assistance or help with setup. She also got up from rec liner with SBA and took a few steps with FWW with SBA. She returned to recliner SBA and was able to adjust footrest on chair by herself. Eating (QC): 6 Oral Hygiene (QC): 88 Shower/Bathe Self (QC): 88 Upper Body Dressing (QC): 88 Lower Body Dressing (QC): 88 On/Off Footwear (QC): 88 Toileting Hygiene (QC): 88 ADLs to follow Education OT Patient Education: Purpose of tx/functional activities, Rehab process Teaching Recipient: Patient Teaching Methods: Discussion Response to Teaching: Verbalize Understanding OT Short Term Goals Short Term Goals Time Frame: Feb 26, 2021 Toileting hygiene: 6 Upper body dressin OT Roofer Applicator Goals Roofer Applicator Goals Time Frame: Mar 05, 2021 Eating (QC): 6 Oral Hygiene (QC): 6 Toileting Hygiene (QC): 6 Shower/Bathe Self (QC): 6 Upper Body Dressing (QC): 6 Lower Body Dressing (QC): 6 On/Off Footwear (QC): 6 Additional Goals: 1-Demonstrate ADL Tasks, 2-Verbalize Understanding, 3- ImproveStrength/[place] 1=Demonstrate adherence to instructed precautions during ADL tasks. 2=Patient will verbalize/demonstrate understanding of assistive devices/modifications for ADL. 3=Patient will improve strength/tolerance for activity to enable patient to perform ADL's. OT Education/Plan Problem List/Assessment Assessment: Decreased Activ Tolerance, Decreased UE Strength, Dependent Transfers, Impaired Self-Care Skills Pt would benefit from skilled OT to increase her independence in basic self care to allow her to safely return to her home Discharge Recommendations Plan/Recommendations: Continue POC Treatment Plan/Plan of Care Treatment,Training & Education: Yes Patient would benefit from OT for education, treatment and training to promote independence in ADL's, mobility, safety and/or upper extremity function for ADL' s. Plan of Care: ADL Retraining, Functional Mobility, Group Exercise/Act as Ind (socialization, activity tolerance), UE Funct Exercise/Act, UE Neuromus Re- Ed/Coord Treatment Duration: Mar 05, 2021 Frequency: At least 5 of 7 days/Wk (IRF) Estimated Hrs Per Day: 1.5 hours per day Agreement: Yes Rehab Potential: Good Time/GCodes Start Time: 08:35 Stop Time: 09:00 Total Time Billed (hr/min): 25 Billed Treatment Time visit, 25 minutes evaluation moderate intensity EBER RICCI OT Feb 19, 2021 08:30
[2021-02-19 08:32] VITALS: BP 130/74
--- NOTE | 2021-02-19 08:34 | Physical Therapy Evaluation ---
PT Evaluation-General Medical Diagnosis Admission Date Feb 18, 2021 at 17:28 Medical Diagnosis: debility Onset Date: Feb 17, 2021 Therapy Diagnosis Therapy Diagnosis: debility Precautions Precautions/Isolations: Fall Prevention, Standard Precautions Referral Physician: Sammi Medical History Pertinent Medical History: Atrial Fib, DM, HTN Current History Admit from OSH due to falls and debility Reviewed History: Yes Social History Home: Single Level Current Living Status: Alone Entry Into Home: Level Entry PT Steps Inside Home: 2 (2 steps up to kitchen and down to restroom) Prior Prior Level of Function SCALE: Activities may be completed with or without assistive devices. 1-Fdjwvtbpvg-ghhvnyz completes the activity by him/herself with no assistance from a helper. 5-Set-up or Clean-up Assistance-helper sets up or cleans up; patient completes activity. [place] assists only prior to or following the activity. 4-Supervision or Touching Assistance-helper provides verbal cues and/or t ouching/steadying and/or contact guard assistance as patient completes activity. Assistance may be provided throughout the activity or intermittently. 3-Partial/Moderate Assistance-helper does LESS THAN HALF the effort. [place] lifts, holds or supports trunk or limbs, but provides less than half the effort. 2-Substantial/Maximal Assistance-helper does MORE THAN HALF the effort. [place] lifts or holds trunk or limbs and provides more than half the effort. 3-Vrssdybfg-cvchcz does ALL the effort. Patient does none of the effort to complete the activity. Or, the assistance of 2 or more helpers is required for the patient to complete the activity. If activity was not attempted, code reason: 7-Patient Refused. 9-Not Applicable-not attempted and the patient did not perform the activity before the current illness, exacerbation or injury. 10-Not Attempted due to Environmental Limitations-(lack of equipment, weather restraints, etc.). 88-Not Attempted due to Medical Conditions or Safety Concerns. Bed Mobility: 6 Transfers (B,C,W/C): 6 Gait: 6 Stairs: 6 Wheelchair Mobility: 9 Indoor Mobility (Ambulation): Independent Stairs: Independent Prior Devices Use: Walker, Other-see list below Prior Device Use: FWW and/or cane PT Evaluation-Current Subjective Patient agrees to PT. Patient reports she does not want to wear the sling on her right arm and said it was only a sprain. PT consulted with RN. Pain Numeric Pain Scale: 0-No Pain Location: No Pain Reported Objective Patient Orientation: Normal For Age ROM/Strength ROM Lower Extremities bilateral LE WFL Strength Lower Extremities 4-/5 grossly bilateral LE all planes Integumentary/Posture Bowel Incontinence: No Bladder Incontinence: No Posture WFL Neuromuscular (Tone, Coordination, Reflexes) grossly intact Sensory Vision: Functional Hearing: Functional Sensation Right Lower Extremit: Intact Sensation Left Lower Extremity: Intact Transfers Roll Left & Right (QC): 6 Sit to Lying (QC): 6 Lying to Sitting/Side of Bed(Q: 6 Sit to Stand (QC): 4 Chair/Uzz-fg-Tizvt Xfer(QC): 4 Toilet Transfer (QC): 4 Car Transfer (QC): 4 SBA for safety on initial evaluation Gait Does the Patient Walk?: Yes Mode of Locomotion: Walk Anticipated Mode of Locomotion: Walk Walk 10 feet (QC): 4 Walk 50 ft with 2 Turns(QC): 4 Walk 150 ft (QC): 4 Walking 10ft/uneven surface-QC: 4 Distance: 500' x 1/200' x 3 Gait Assistive Device: FWW Comments/Gait Description safe and functional with no deviation/SBA for safety Wheelchair Training Does the Pt Use a Wheelchair?: No Wheel 50 ft with 2 turns (QC): 9 Wheel 150 ft (QC): 9 Type of Wheelchair: N/A Stairs #of Steps: 12 1 Step (curb) (QC): 4 4 Steps (QC): 4 12 Steps (QC): 4 SBA with patient performing ascending reciprocal pattern and step to descending Balance Sitting Static: Normal Sitting Dynamic: Normal Standing Static: Normal Standing Dynamic: Normal Picking up an Object (QC): 4 (SBA) Treatment Patient performed supine exercises 15 reps each bilateral LE AP, QS, HS, knee to chest, SLR, trunk rotation, bridging Nu step 20 min/WL 3 to build strength and endurance to return to home safely. Assessment/Needs 89 y.o. female, will be seen by skilled PT to address functional strength and mobility to ensure safe return to home at maximum LOF. Rehab Potential: Fair PT Stock Grader Goals Stock Grader Goals PT Stock Grader Goals Time Frame: Mar 05, 2021 Roll Left & Right (QC): 6 Sit to Lying (QC): 6 Lying-Sitting on Side/Bed(QC): 6 Sit to Stand (QC): 6 Chair/Och-oc-Lreke Xfer(QC): 6 Toilet Transfer (QC): 6 Car Transfer (QC): 6 Does the Patient Walk: Yes Walk 10 feet (QC): 6 Walk 50ft with 2 Turns (QC): 6 Walk 150 ft (QC): 6 Walking 10ft on Uneven Surface: 6 1 Step (curb) (QC): 6 4 Steps (QC): 6 12 Steps (QC): 6 Picking up an Object (QC): 6 Wheel 50 feet with 2 turns (QC: 9 Type: N/A Wheel 150 feet: 9 Type: N/A PT Plan Treatment/Plan Treatment Plan: Continue Plan of Care Treatment Plan: Bed Mobility, Concurrent Therapy, Education, Functional Activity [place], Functional Strength, Group Therapy, Gait, Safety, Therapeutic Exercise, Transfers Treatment Duration: Mar 05, 2021 Frequency: At least 5 of 7 days/Wk (IRF) Estimated Hrs Per Day: 1.5 hours per day Patient and/or Family Agrees t: Yes Time/GCodes Time In: 650 Time Out: 820 Total Billed Treatment Time: 90 Total Billed Treatment 1 visit EVModC 25 min EX x 3 50 min FA 15 min CRYSTAL MENDEZ PT Feb 19, 2021 08:34
[2021-02-19] MEDS ORDERED: GARLIC 500 MG PO SCH (09:00)
[2021-02-19] MEDS ORDERED: NON-FORMULARY MEDICATION 1 EA EA (Vitamin A 8,000 UNIT) PO SCH (09:00)
[2021-02-19] MEDS ORDERED: CYANOCOBALAMIN 50 MCG PO SCH (09:00)
--- NOTE | 2021-02-19 09:20 | PM&R Progress Note ---
Subjective HPI/CC On Admission Date Seen by Provider: Feb 19, 2021 Time Seen by Provider: 12:00 Subjective/Events-last exam 02/19/21: Patient doing really well today Younger son is visiting Discontinue the supplement she does not want to take Eliquis clarified to 5 mg twice daily Feels like she is gaining already Ambulating around pretty well Review of Systems General: Fatigue, Malaise Musculoskeletal: shoulder pain, back pain Objective Exam Vital Signs Vital Signs Date Time Temp Pulse Resp B/P (MAP) Pulse Ox O2 Delivery O2 Flow Rate FiO2 02/19/21 21:00 Room Air 02/19/21 20:00 37.6 88 18 174/72 (106) 98 02/18/21 17:58 99.00 Capillary Refill : General Appearance: No Apparent Distress, WD/WN, Chronically ill HEENT: PERRL/EOMI, Normal ENT Inspection, Pharynx Normal Neck: Full Range of Motion, Normal Inspection, Non Tender, Supple, Carotid Bruit Respiratory: Chest Non Tender, Lungs Clear, Normal Breath Sounds, No Accessory Muscle Use, No Respiratory Distress Cardiovascular: Regular Rate, Rhythm, No Edema, No Gallop, No JVD, No Murmur, Normal Peripheral Pulses Gastrointestinal: Normal Bowel Sounds, No Organomegaly, No Pulsatile Mass, Non Tender, Soft Back: Normal Inspection, No CVA Tenderness, No Vertebral Tenderness Extremity: Normal Capillary Refill, Normal Inspection, Normal Range of Motion (Except right arm in sling), Non Tender, No Calf Tenderness, No Pedal Edema Neurologic/Psychiatric: Alert, Oriented x3, No Motor/Sensory Deficits, Normal Mood/Affect, 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 FIM Transfers Therapy Code Descriptions/Definitions Functional [place] Measure: 0=Not Assessed/NA 4=Minimal Assistance 1=Total Assistance 5=Supervision or Setup 2=Maximal Assistance 6=Modified [place] 3=Moderate Assistance 7=Complete IndependenceSCALE: Activities may be completed with or without assistive devices. 5-Agkspzpfdr-zrtxdwf completes the activity by him/herself with no assistance fr om a helper. 5-Set-up or Clean-up Assistance-helper sets up or cleans up; patient completes activity. [place] assists only prior to or following the activity. 4-Supervision or Touching Assistance-helper provides verbal cues and/or touching/steadying and/or contact guard assistance as patient completes activity. Assistance may be provided throughout the activity or intermittently. 3-Partial/Moderate Assistance-helper does LESS THAN HALF the effort. [place] lifts, holds or supports trunk or limbs, but provides less than half the effort. 2-Substantial/Maximal Assistance-helper does MORE THAN HALF the effort. [place] lifts or holds trunk or limbs and provides more than half the effort. 9-Ujozshfvv-snyhfq does ALL the effort. Patient does none of the effort to complete the activity. Or, the assistance of 2 or more helpers is required for the patient to complete the activity. If activity was not attempted, code reason: 7-Patient Refused. 9-Not Applicable-not attempted and the patient did not perform the activity before the current illness, exacerbation or injury. 10-Not Attempted due to Environmental Limitations-(lack of equipment, weather restraints, etc.). 88-Not Attempted due to Medical Conditions or Safety Concerns. Roll Left to Right (QC): 6 Sit to Lying (QC): 6 Sit to Stand (QC): 4 Chair/Nvh-tc-Odaky Xfer(QC): 4 Car Transfer (QC): 4 Gait Training Does the Patient Walk?: Yes Walk 10 feet (QC): 4 Walk 50 ft with 2 Turns(QC): 4 Walk 150 ft (QC): 4 Walking 10ft/uneven surface-QC: 4 Gait Assistive Device: FWW Wheelchair Training Does the Pt Use a Wheelchair?: No Wheel 50 ft with 2 turns (QC): 9 Wheel 150 ft (QC): 9 Type of Wheelchair: N/A Stair Training #of Steps: 12 1 Step (curb) (QC): 4 4 Steps (QC): 4 12 Steps (QC): 4 Balance Picking up an Object (QC): 4 (SBA) ADL-Treatment Eating (QC): 6 Assessment/Plan Assessment and Plan Assess & Plan/Chief Complaint Assessment: Debility Status post acute kidney injury resolved with IV fluid Hypertension Chronic atrial fibrillation Oral anticoagulation Right arm injury History of traumatic brain injury Plan: Encourage oral nutrition Inpatient rehab protocol Monitor closely 02/19/2021: Monitoring closely Eliquis 5 mg twice daily Fall risk (1) Debility (2) Dehydration Status: Acute (3) Renal insufficiency Status: Acute WILLIAM RANDALL DO Feb 19, 2021 09:20
--- NOTE | 2021-02-19 09:21 | Individualized Plan of Care ---
Individualized Plan of Care Rehab Nursing IPOC Order Admission Date Feb 18, 2021 at 17:28 Current Orders Orders Admission Order(Inpt,Obs,Sdc) (02/18/21 15:57) Vital Signs: Per Unit Policy ( ,16, (02/18/21 15:57) Zacarias Nicole (02/18/21 15:57) Sequential Compression Device (02/18/21 15:57) Javascript Programmer-Inpt Rehab Con (02/18/21 15:57) Rehab Nursing Orders-Ipoc (02/18/21 15:57) Physical Therapy Rehab Orders (02/18/21 15:57) Occupational Therapy Rehab Ord (02/18/21 15:57) Speech Therapy Rehab Orders (02/18/21 15:57) Cbc With Automated Diff (02/19/21 06:00) Comprehensive Metabolic Panel (02/19/21 06:00) Precautions (Aru) (02/18/21 15:57) Weekly Weight WEEK (02/18/21 15:57) Rehab-Intensity Of Therapy (02/18/21 15:57) Initiate Admission Nursing Pro .admission (02/18/21 15:57) Alprazolam Tablet (Xanax Tablet) (02/18/21 16:00) Calcium Carbonate Chew Tablet (Antacid C (02/18/21 16:00) Diphenhydramine Tablet (Benadryl Tablet) (02/18/21 16:00) Docusate Sodium Capsule (Colace Capsule) (02/18/21 21:00) Docusate Sodium Capsule (Colace Capsule) (02/18/21 16:00) Bisacodyl Suppository (Dulcolax Supposit (02/18/21 16:00) Lactulose Oral Solution (Enulose Oral So (02/18/21 16:00) Na Phos/Na Biphos Enema (Fleet Enema Osman (02/18/21 16:00) Loperamide Tablet (Imodium Tablet) (02/18/21 16:00) Melatonin Tablet (Melatonin Tablet) (02/18/21 16:00) Polyethylene Glycol Powder Pkt (Miralax (02/18/21 21:00) Ondansetron Oral Dissolve Tab (Zofran (02/18/21 16:00) Senna S Tablet (Senokot S Tablet) (02/18/21 21:00) Therapeutic Activity Goals: .PRN (02/18/21 15:57) Acetaminophen Tablet (Tylenol Tablet) (02/18/21 16:00) Nursing Communication (Order) (02/18/21 ) Naloxone Injection (Narcan Injection) (02/18/21 16:00) Code/Resuscitation (02/18/21 15:57) Sequential Compression Device ONCE (02/18/21 15:57) Cho 60g/M 1snack (16-2000 Elvsi) (02/18/21 Dinner) Accucheck Achs ACHS (02/18/21 17:41) Alprazolam Tablet (Xanax Tablet) (02/18/21 19:30) Apixaban Tablet (Eliquis Tablet) (02/18/21 21:00) Ferrous Sulfate Tablet (Feosol Tablet) (02/19/21 09:00) Linagliptin Tablet (Tradjenta Tablet) (02/19/21 09:00) Simvastatin Tablet (Zocor Tablet) (02/18/21 21:00) Ascorbic Acid Tablet (Vitamin C Tablet) (02/19/21 09:00) Cholecalciferol Capsule/Tablet (Vitamin (02/19/21 09:00) (Nf) Cyanocobalamin (Vitamin B-12) (Luz (02/19/21 09:00) (Nf) Dapagliflozin Propanediol (Farxiga) (02/19/21 09:00) (Nf) Garlic (02/19/21 09:00) Insulin Determir (Per Unit) (Levemir (Pe (02/19/21 09:00) Therapeutic Multivitamin Tab (Vitamins, (02/19/21 07:00) (Nf) Vit C/E/Zn/Coppr/Lutein/Zeaxan (Pre (02/18/21 21:00) (Nf) Vitamin A (02/19/21 09:00) Insulin Aspart (Novolog) (Novolog (Charg (02/18/21 21:00) Patient Visit (02/19/21 ) Pt Eval Moderate Complexity (02/19/21 ) Exercise Therap, Ea 15 Min (02/19/21 ) Functional Activities, Ea 15 (02/19/21 ) Diclofenac 1% Gel (Voltaren 1% Gel) (02/19/21 13:00) Apixaban Tablet (Eliquis Tablet) (02/19/21 21:00) Patient May Use Own Med,Single (Patient (02/19/21 21:00) Patient May Use Own Med,Single (Patient (02/20/21 09:00) Patient May Use Own Med,Single (Patient (02/19/21 13:45) Non-Formulary Medication (Non-Formulary (02/20/21 09:00) Vit A/C/E/Zinc/Co (Non-Form) (Preservisi (02/19/21 21:00) Rehab Nursing Orders: Ongoing Assess. of Cognitive Status, Ongoing Assess. of Function Status, Bladder Management, Bladder Scan, Bladder Training, Bowel Management, Bowel Training, Disease Management & Educaiton, DVT Prophylaxis, Fall Prevention, Fluid/Electrolyte/Nutrition Mgmt, Infection Prevention, Medication Management & Education, Management of Risks & Complications, Management of Skin Intergrity, Nutrition Management, Pain Management, Patient/Family Support Intensity of Therapy to be met Patient to be seen: Min.3h per day/5 of 7d PT IPOC Problem List: Activity Tolerance, Functional Strength, Safety, Balance Treatment Plan: Continue Plan of Care Bed Mobility, Concurrent Therapy, Education, Functional Activity [place], Functional Strength, Group Therapy, Gait, Safety, Therapeutic Exercise, Transfers Treatment Duration: Mar 05, 2021 Frequency: At least 5 of 7 days/Wk (IRF) Estimated Hrs Per Day: 1.5 hours per day OT IPOC Problems: Decreased Activ Tolerance, Decreased Safety Aware, Decreased UE Strength, Impaired Self-Care Skills, Restricted Funct UE ROM OT Treatment, Training and Edu: Yes Plan of Care: ADL Retraining, Cognitive Retraining, Concurrent Therapy, Functional Mobility Treatment Duration: Feb 19, 2021 Frequency: 5 times per week Estimated Hrs Per Day: .[address] IPOC Speech Therapy Treatment Plan: Discontinue ST Treatment Duration: Feb 19, 2021 Frequency: Modified Program (IRF) Estimated Hrs Per Day: .25 hour per day Javascript Programmer/Case Mgmt Javascript Programmer/Case Managemen: Discharge Planning Dietitian/Custom Stock Maker Dietitian/Custom Stock Maker to monitor nutritional status and make changes and/or recommendations as needed and work with speech pathology on dietary upgrades as the occur. Physician IPOC Medical Issues being managed closely and that require the 24 hour availability of a physician: Recent fall with OAC due to AF will require close monitoring for any recurrence of [place] Medical Issues: Bowel/Bladder Function, DVT Prophylaxis, Falls Precautions, Fluid/Electrolyte/Nutrition Balance, Infection Protection, Pain Management, Wound Care Brief Synthesis of Preadmission Screen, Post-Admission Evaluation, and Therapy Evaluations: PT OT will focus on regaining strength and work on fall risk prevention in order to return to independent living Medical Prognosis: 7 days Anticipated Length of Stay: WILLIAM Card DO Feb 19, 2021 09:21
--- NOTE | 2021-02-19 10:04 | Occupational Ther Daily Note ---
OT Current Status-Daily Note Subjective Pt alert, sitting in recliner. Took over care from OTR/L. No c/o pain. Mental Status/Objective Patient Orientation: Person, Place, Time, Situation ADL-Treatment Pt agrees to shower. Ambulated using FWW to bathroom with SBA. SBA for toilet transfer and toilet hygiene/clothing manipulation using FWW and grabbars. Pt stood to dress all clothing except socks with SBA using FWW to stabilize. Pt sat on toilet to doff socks independently. Pt ambulated using FWW to transfer into/out of shower with SBA. Supervision to complete shower sitting on bench to cleanse all areas except when standing to cleanse buttocks/bijan area. Pt sat to don lower body clothing over feet then stood with SBA to hike over hips. Stood to don shirt with SBA. Sat to don socks independently. Pt stood at sink while stabilizing with counter to complete oral care and grooming, independently. After session, pt sitting in recliner with call light/phone in reach. All needs met in room. Therapy Code Descriptions/Definitions Functional [place] Measure: 0=Not Assessed/NA 4=Minimal Assistance 1=Total Assistance 5=Supervision or Setup 2=Maximal Assistance 6=Modified [place] 3=Moderate Assistance 7=Complete IndependenceSCALE: Activities may be completed with or without assistive devices. 4-Piqrsoqfii-ubzanuv completes the activity by him/herself with no assistance from a helper. 5-Set-up or Clean-up Assistance-helper sets up or cleans up; patient completes activity. [place] assists only prior to or following the activity. 4-Supervision or Touching Assistance-helper provides verbal cues and/or touching/steadying and/or contact guard assistance as patient completes activity. Assistance may be provided throughout the activity or intermittently. 3-Partial/Moderate Assistance-helper does LESS THAN HALF the effort. [place] lifts, holds or supports trunk or limbs, but provides less than half the effort. 2-Substantial/Maximal Assistance-helper does MORE THAN HALF the effort. [place] lifts or holds trunk or limbs and provides more than half the effort. 8-Ksholhsyn-ylnqde does ALL the effort. Patient does none of the effort to complete the activity. Or, the assistance of 2 or more helpers is required for the patient to complete the activity. If activity was not attempted, code reason: 7-Patient Refused. 9-Not Applicable-not attempted and the patient did not perform the activity before the current illness, exacerbation or injury. 10-Not Attempted due to Environmental Limitations-(lack of equipment, weather restraints, etc.). 88-Not Attempted due to Medical Conditions or Safety Concerns. Oral Hygiene (QC): 6 Shower/Bathe Self (QC): 4 (Supervision) Upper Body Dressing (QC): 4 (SBA) Lower Body Dressing (QC): 4 (SBA) On/Off Footwear: 6 Toileting Hygiene (QC): 4 (SBA) Toilet Transfer (QC): 4 (SBA) OT Short Term Goals Short Term Goals Time Frame: Feb 26, 2021 Toileting hygiene: 6 Upper body dressin OT Thread Cutter Tender Goals Thread Cutter Tender Goals Time Frame: Mar 05, 2021 Eating (QC): 6 Oral Hygiene (QC): 6 Toileting Hygiene (QC): 6 Shower/Bathe Self (QC): 6 Upper Body Dressing (QC): 6 Lower Body Dressing (QC): 6 On/Off Footwear (QC): 6 Additional Goals: 1-Demonstrate ADL Tasks, 2-Verbalize Understanding, 3- ImproveStrength/[place] 1=Demonstrate adherence to instructed precautions during ADL tasks. 2=Patient will verbalize/demonstrate understanding of assistive devices/modifications for ADL. 3=Patient will improve strength/tolerance for activity to enable patient to perform ADL's. OT Education/Plan Problem List/Assessment Assessment: Impaired Self-Care Skills Pt would benefit from skilled OT to increase her independence in basic self care to allow her to safely return to her home Discharge Recommendations Plan/Recommendations: Continue POC Treatment Plan/Plan of Care Patient would benefit from OT for education, treatment and training to promote independence in ADL's, mobility, safety and/or upper extremity function for ADL's. Plan of Care: ADL Retraining, Functional Mobility, Group Exercise/Act as Ind (socialization, activity tolerance), UE Funct Exercise/Act, UE Neuromus Re- Ed/Coord Treatment Duration: Mar 05, 2021 Frequency: At least 5 of 7 days/Wk (IRF) Estimated Hrs Per Day: 1.5 hours per day Agreement: Yes Rehab Potential: Good Time/GCodes Start Time: 09:00 Stop Time: 10:05 Total Time Billed (hr/min): 65 Billed Treatment Time 1 visit-ADL 4 (65 min) YUAN GOOD Feb 19, 2021 10:04
[2021-02-19] MEDS: DICLOFENAC 1% GEL 100 GM (VOLTAREN) TUBE TOP SCH ×3 (13:39→21:35)
[2021-02-19] MEDS ORDERED: PATIENT MAY USE OWN MED,SINGLE MED PO SCH ×2 (13:45→21:00)
[2021-02-19] MEDS: DAPAGLIFLOZIN 5 MG PO SCH (14:41)
[2021-02-19 20:00] VITALS: BP 174/72
[2021-02-19] MEDS: SIMvastatin 40 MG (ZOCOR) TAB PO SCH (21:34)
[2021-02-19] MEDS: ACETAMINOPHEN 500 MG TAB (TYLENOL) PO PRN (21:34)
[2021-02-19] MEDS: APIXABAN 5 MG (ELIQUIS) TABLET PO SCH (21:34)
[2021-02-19] MEDS: PRESERVISION AREDS SOFTGEL (BAUSH & LOMB) PO SCH (21:35)
[2021-02-20] MEDS: inSUlin ASPART (NovoLOG) 1 UNIT/0.01 ML (CHARGE PER UNIT) SC SCH ×4 (07:13→21:23)
[2021-02-20] MEDS: MULTIVIT W/MINERALS TAB (THERAGRAN M) PO SCH (07:14)
[2021-02-20 07:26] VITALS: BP 113/56
[2021-02-20] MEDS: SENNA W/DOCUSATE (SENOKOT S) TABLET PO SCH ×2 (08:23→21:23)
[2021-02-20] MEDS: FERROUS SULF 325 MG (IRON) TAB PO SCH (08:23)
[2021-02-20] MEDS: DOCUSATE SODIUM 100 MG (COLACE) CAP PO SCH ×2 (08:23→21:35)
[2021-02-20] MEDS: ASCORBIC ACID (VIT C) 500 MG TABLET PO SCH (08:23)
[2021-02-20] MEDS: APIXABAN 5 MG (ELIQUIS) TABLET PO SCH ×2 (08:23→21:35)
[2021-02-20] MEDS: VITAMIN D3 25 MCG (1,000 UNITS) TABLET PO SCH (08:23)
[2021-02-20] MEDS: DICLOFENAC 1% GEL 100 GM (VOLTAREN) TUBE TOP SCH ×4 (08:24→21:36)
[2021-02-20] MEDS: GINKGO BILOBA PO SCH (08:25)
[2021-02-20] MEDS: PRESERVISION AREDS SOFTGEL (BAUSH & LOMB) PO SCH ×2 (08:25→21:36)
[2021-02-20] MEDS: DAPAGLIFLOZIN 5 MG PO SCH (08:26)
[2021-02-20] MEDS: polyethylene glycoL POWDER 17 GM (MIRALAX) PACK PO SCH ×2 (08:28→21:23)
[2021-02-20] MEDS ORDERED: PATIENT MAY USE OWN MED,SINGLE MED PO SCH (09:00)
--- NOTE | 2021-02-20 12:34 | PM&R Progress Note ---
Subjective HPI/CC On Admission Date Seen by Provider: Feb 20, 2021 Time Seen by Provider: 12:45 Subjective/Events-last exam 02/20/2021: Patient doing very well Ambulating around Fall risk prevention education Goes to cardiology for pacemaker evaluation on 02/23/2021 02/19/21: Patient doing really well today Younger son is visiting Discontinue the supplement she does not want to take Eliquis clarified to 5 mg twice daily Feels like she is gaining already Ambulating around pretty well Review of Systems General: Fatigue, Malaise Objective Exam Vital Signs Vital Signs Date Time Temp Pulse Resp B/P (MAP) Pulse Ox O2 Delivery O2 Flow Rate FiO2 02/20/21 09:29 Room Air 02/20/21 07:26 36.7 71 18 113/56 (75) 98 02/18/21 17:58 99.00 Capillary Refill : General Appearance: No Apparent Distress, WD/WN, Chronically ill HEENT: PERRL/EOMI, Normal ENT Inspection, Pharynx Normal Neck: Full Range of Motion, Normal Inspection, Non Tender, Supple, Carotid Bruit Respiratory: Chest Non Tender, Lungs Clear, Normal Breath Sounds, No Accessory Muscle Use, No Respiratory Distress Cardiovascular: Regular Rate, Rhythm, No Edema, No Gallop, No JVD, No Murmur, Normal Peripheral Pulses Gastrointestinal: Normal Bowel Sounds, No Organomegaly, No Pulsatile Mass, Non Tender, Soft Back: Normal Inspection, No CVA Tenderness, No Vertebral Tenderness Extremity: Normal Capillary Refill, Normal Inspection, Normal Range of Motion (Except right arm in sling), Non Tender, No Calf Tenderness, No Pedal Edema Neurologic/Psychiatric: Alert, Oriented x3, No Motor/Sensory Deficits, Normal 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 FIM Transfers Therapy Code Descriptions/Definitions Functional [place] Measure: 0=Not Assessed/NA 4=Minimal Assistance 1=Total Assistance 5=Supervision or Setup 2=Maximal Assistance 6=Modified [place] 3=Moderate Assistance 7=Complete IndependenceSCALE: Activities may be completed with or without assistive devices. 0-Cdqxcfyoez-votrolu completes the activity by him/herself with no assistance from a helper. 5-Set-up or Clean-up Assistance-helper sets up or cleans up; patient completes activity. [place] assists only prior to or following the activity. 4-Supervision or Touching Assistance-helper provides verbal cues and/or touching/steadying and/or contact guard assistance as patient completes activity. Assistance may be provided throughout the activity or intermittently. 3-Partial/Moderate Assistance-helper does LESS THAN HALF the effort. [place] lifts, holds or supports trunk or limbs, but provides less than half the effort. 2-Substantial/Maximal Assistance-helper does MORE THAN HALF the effort. [place] lifts or holds trunk or limbs and provides more than half the effort. 4-Sesxnxoun-oxwpnb does ALL the effort. Patient does none of the effort to complete the activity. Or, the assistance of 2 or more helpers is required for the patient to complete the activity. If activity was not attempted, code reason: 7-Patient Refused. 9-Not Applicable-not attempted and the patient did not perform the activity before the current illness, exacerbation or injury. 10-Not Attempted due to Environmental Limitations-(lack of equipment, weather restraints, etc.). 88-Not Attempted due to Medical Conditions or Safety Concerns. Roll Left to Right (QC): 6 Sit to Lying (QC): 6 Sit to Stand (QC): 4 Chair/Hjv-ye-Xavbn Xfer(QC): 4 Car Transfer (QC): 4 Gait Training Does the Patient Walk?: Yes Walk 10 feet (QC): 4 Walk 50 ft with 2 Turns(QC): 4 Walk 150 ft (QC): 4 Walking 10ft/uneven surface-QC: 4 Gait Assistive Device: FWW Wheelchair Training Does the Pt Use a Wheelchair?: No Wheel 50 ft with 2 turns (QC): 9 Wheel 150 ft (QC): 9 Type of Wheelchair: N/A Stair Training #of Steps: 12 1 Step (curb) (QC): 4 4 Steps (QC): 4 12 Steps (QC): 4 Balance Picking up an Object (QC): 4 (SBA) ADL-Treatment Eating (QC): 6 Oral Hygiene (QC): 6 Shower/Bathe Self (QC): 4 (Supervision) Upper Body Dressing (QC): 4 (SBA) Lower Body Dressing (QC): 4 (SBA) On/Off Footwear (QC): 6 Toileting Hygiene (QC): 4 (SBA) Toilet Transfer (QC): 4 (SBA) Assessment/Plan Assessment and Plan Assess & Plan/Chief Complaint Assessment: Debility Status post acute kidney injury resolved with IV fluid Hypertension Chronic atrial fibrillation Oral anticoagulation Right arm injury History of traumatic brain injury Plan: Encourage oral nutrition Inpatient rehab protocol Monitor closely 02/19/2021: Monitoring closely Eliquis 5 mg twice daily Fall risk 02/20/2021: Supportive care Fall risk prevention (1) Debility (2) Dehydration Status: Acute (3) Renal insufficiency Status: Acute WILLIAM RANDALL DO Feb 20, 2021 12:34
[2021-02-20 20:00] VITALS: BP 152/67
[2021-02-20] MEDS: SIMvastatin 40 MG (ZOCOR) TAB PO SCH (21:35)
[2021-02-21 06:06] LABS: BASOPHILS # (AUTO) 0.1 10^3/uL (0.0-0.1); BASOPHILS % (AUTO) 1 % (0-10); EOSINOPHILS # (AUTO) 0.2 10^3/uL (0.0-0.3); EOSINOPHILS % (AUTO) 2 % (0-10); HEMATOCRIT 42 % (35-52); HEMOGLOBIN 13.9 g/dL (11.5-16.0); LYMPHOCYTES % (AUTO) 14 % (12-44); MEAN CORPUSCULAR HEMOGLOBIN 32 pg (25-34); MEAN CORPUSCULAR HGB CONC 33 g/dL (32-36); MEAN CORPUSCULAR VOLUME 98 fL (80-99); MEAN PLATELET VOLUME 12.4 fL (9.0-12.2); MONOCYTES # (AUTO) 0.8 10^3/uL (0.0-1.0); MONOCYTES % (AUTO) 11 % (0-12); NEUTROPHILS % (AUTO) 71 % (42-75); PLATELET COUNT 143 10^3/uL (130-400)
[2021-02-21 06:32] LABS: ALBUMIN 3.3 GM/DL (3.2-4.5); POTASSIUM 4.2 MMOL/L (3.6-5.0)
[2021-02-21 06:34] LABS: CALCIUM 8.6 MG/DL (8.5-10.1)
[2021-02-21 06:35] LABS: TOTAL PROTEIN 6.3 GM/DL (6.4-8.2)
[2021-02-21 06:37] LABS: BILIRUBIN,TOTAL 0.7 MG/DL (0.1-1.0)
[2021-02-21 06:38] LABS: CREATININE SERUM 0.94 MG/DL (0.60-1.30)
[2021-02-21] MEDS: inSUlin ASPART (NovoLOG) 1 UNIT/0.01 ML (CHARGE PER UNIT) SC SCH ×4 (06:50→20:22)
[2021-02-21 08:00] VITALS: BP 105/56
[2021-02-21] MEDS: FERROUS SULF 325 MG (IRON) TAB PO SCH (08:43)
[2021-02-21] MEDS: MULTIVIT W/MINERALS TAB (THERAGRAN M) PO SCH ×2 (08:43→08:51)
[2021-02-21] MEDS: DOCUSATE SODIUM 100 MG (COLACE) CAP PO SCH ×2 (08:43→20:13)
[2021-02-21] MEDS: VITAMIN D3 25 MCG (1,000 UNITS) TABLET PO SCH (08:43)
[2021-02-21] MEDS: APIXABAN 5 MG (ELIQUIS) TABLET PO SCH ×2 (08:43→20:12)
[2021-02-21] MEDS: ASCORBIC ACID (VIT C) 500 MG TABLET PO SCH (08:43)
[2021-02-21] MEDS: SENNA W/DOCUSATE (SENOKOT S) TABLET PO SCH ×2 (08:44→20:13)
[2021-02-21] MEDS: polyethylene glycoL POWDER 17 GM (MIRALAX) PACK PO SCH ×2 (08:44→20:12)
[2021-02-21] MEDS: DICLOFENAC 1% GEL 100 GM (VOLTAREN) TUBE TOP SCH ×4 (08:44→20:26)
[2021-02-21] MEDS: DAPAGLIFLOZIN 5 MG PO SCH (08:45)
[2021-02-21] MEDS: PRESERVISION AREDS SOFTGEL (BAUSH & LOMB) PO SCH ×2 (08:45→20:25)
[2021-02-21] MEDS: GINKGO BILOBA PO SCH (08:45)
--- NOTE | 2021-02-21 08:57 | Physical Therapy Daily Note ---
PT Daily Note-Current Subjective Pt. agrees to Rx. States she is feeling so much better and stronger. States she has a lot of support from her family. No pain c/o Pain Location: No Pain Reported Mental Status Patient Orientation: Normal For Age Transfers SCALE: Activities may be completed with or without assistive devices. 1-Tzoodwkxnf-blvssxc completes the activity by him/herself with no assistance from a helper. 5-Set-up or Clean-up Assistance-helper sets up or cleans up; patient completes activity. [place] assists only prior to or following the activity. 4-Supervision or Touching Assistance-helper provides verbal cues and/or touching/steadying and/or contact guard assistance as patient completes activity. Assistance may be provided throughout the activity or intermittently. 3-Partial/Moderate Assistance-helper does LESS THAN HALF the effort. [place] lifts, holds or supports trunk or limbs, but provides less than half the effort. 2-Substantial/Maximal Assistance-helper does MORE THAN HALF the effort. [place] lifts or holds trunk or limbs and provides more than half the effort. 7-Drwgaexqw-yiqgnw does ALL the effort. Patient does none of the effort to complete the activity. Or, the assistance of 2 or more helpers is required for the patient to complete the activity. If activity was not attempted, code reason: 7-Patient Refused. 9-Not Applicable-not attempted and the patient did not perform the activity before the current illness, exacerbation or injury. 10-Not Attempted due to Environmental Limitations-(lack of equipment, weather restraints, etc.). 88-Not Attempted due to Medical Conditions or Safety Concerns. Roll Left & Right (QC): 6 Sit to Lying (QC): 6 Lying to Sitting/Side of Bed(Q: 6 Sit to Stand (QC): 6 Chair/Tua-qy-Tcdwn Xfer(QC): 6 pt. demonstrated TRF from sup to side to prone to quadruped then to tall kneel on knees with no LOB. Pt was then instructed in floor TRF using soft cushion mat on floor. Pt demonstrated this with SBA only. Pt. came from quadruped to crawl to mat , used UEs on mat and came to sit on mat with good safe technique Gait Training Does the Patient Walk?: Yes Walk 10 feet (QC): 5 Walk 50 ft with 2 Turns(QC): 5 Walk 150 ft (QC): 5 Walking 10ft/uneven surface-QC: 5 Gait Persons Needed: 1 Gait Assistive Device: FWW even step length, no LOB, good use of AD Stair Training Stair Training: Handrails/: 2 handrails #of Steps: 8 4 Steps (QC): 5 Stairs: Pattern: Reciprocal Exercises Supine Ex: Bridging, Ankle pumps, Quad Set, Rolling, Glut sets, Heel Slides, Short Arc Quads, Scooting, Straight leg raise, Hip abd/add Supine Reps: 15 Seated Therapy Exercises: Ankle pumps, Sit to stand, Long arc quads, Hip flexion, Hip abd/add Seated Reps: 15 NuStep Minutes: 10 NuStep Workload: 3 Assessment Current Status: Good Progress PT Snf Goals Snf Goals PT Snf Goals Time Frame: Mar 05, 2021 Roll Left & Right (QC): 6 Sit to Lying (QC): 6 Lying-Sitting on Side/Bed(QC): 6 Sit to Stand (QC): 6 Chair/Krd-mr-Rvkbg Xfer(QC): 6 Toilet Transfer (QC): 6 Car Transfer (QC): 6 Does the Patient Walk: Yes Walk 10 feet (QC): 6 Walk 50ft with 2 Turns (QC): 6 Walk 150 ft (QC): 6 Walking 10ft on Uneven Surface: 6 1 Step (curb) (QC): 6 4 Steps (QC): 6 12 Steps (QC): 6 Picking up an Object (QC): 6 Wheel 50 feet with 2 turns (QC: 9 Type: N/A Wheel 150 feet: 9 Type: N/A PT Plan Treatment/Plan Treatment Plan: Continue Plan of Care Treatment Plan: Bed Mobility, Concurrent Therapy, Education, Functional Activity [place], Functional Strength, Group Therapy, Gait, Safety, Therapeutic Exercise, Transfers Treatment Duration: Mar 05, 2021 Frequency: At least 5 of 7 days/Wk (IRF) Estimated Hrs Per Day: 1.5 hours per day Patient and/or Family Agrees t: Yes Safety Risks/Education Patient Education: Gait Training, Transfer Techniques, Steps, Correct Positioning, Disease Process, Safety Issues Teaching Recipient: Patient Teaching Methods: Demonstration, Discussion Response to Teaching: Verbalize Understanding, Return Demonstration, Reinforcement Needed Time/GCodes Time In: 755 Time Out: 855 Total Billed Treatment Time: 60 Total Billed Treatment 1,FA25m,EX20m,GT15m ANTWAN GROSS COMMUNICATION SKILLS INSTRUCTOR Feb 21, 2021 08:57
--- NOTE | 2021-02-21 09:15 | PM&R Progress Note ---
Subjective HPI/CC On Admission Date Seen by Provider: Feb 21, 2021 Time Seen by Provider: 09:15 Subjective/Events-last exam 02/21/21/: Pt doing well Diclofenac gel to the right shoulder is much improved Will DC on Sunday prior to cardiology appointment prior to 9 o'clock in [place] 02/20/2021: Patient doing very well Ambulating around Fall risk prevention education Goes to cardiology for pacemaker evaluation on 02/23/2021 02/19/21: Patient doing really well today Younger son is visiting Discontinue the supplement she does not want to take Eliquis clarified to 5 mg twice daily Feels like she is gaining already Ambulating around pretty well Review of Systems General: Fatigue, Malaise Objective Exam Vital Signs Vital Signs Date Time Temp Pulse Resp B/P (MAP) Pulse Ox O2 Delivery O2 Flow Rate FiO2 02/21/21 20:32 96 Room Air 02/21/21 19:33 36.8 75 16 122/66 (84) 02/18/21 17:58 99.00 Capillary Refill : General Appearance: No Apparent Distress, WD/WN, Chronically ill HEENT: PERRL/EOMI, Normal ENT Inspection, Pharynx Normal Neck: Full Range of Motion, Normal Inspection, Non Tender, Supple, Carotid Bruit Respiratory: Chest Non Tender, Lungs Clear, Normal Breath Sounds, No Accessory Muscle Use, No Respiratory Distress Cardiovascular: Regular Rate, Rhythm, No Edema, No Gallop, No JVD, No Murmur, Normal Peripheral Pulses Gastrointestinal: Normal Bowel Sounds, No Organomegaly, No Pulsatile Mass, Non Tender, Soft Back: Normal Inspection, No CVA Tenderness, No Vertebral Tenderness Extremity: Normal Capillary Refill, Normal Inspection, Normal Range of Motion (Except right arm in sling), Non Tender, No Calf Tenderness, No Pedal Edema Neurologic/Psychiatric: Alert, Oriented x3, No Motor/Sensory Deficits, Normal 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 FIM Transfers Therapy Code Descriptions/Definitions Functional [place] Measure: 0=Not Assessed/NA 4=Minimal Assistance 1=Total Assistance 5=Supervision or Setup 2=Maximal Assistance 6=Modified [place] 3=Moderate Assistance 7=Complete IndependenceSCALE: Activities may be completed with or without assistive devices. 1-Sxvdnyxmni-otrgxvc completes the activity by him/herself with no assistance from a helper. 5-Set-up or Clean-up Assistance-helper sets up or cleans up; patient completes activity. [place] assists only prior to or following the activity. 4-Supervision or Touching Assistance-helper provides verbal cues and/or tono neli/steadying and/or contact guard assistance as patient completes activity. Assistance may be provided throughout the activity or intermittently. 3-Partial/Moderate Assistance-helper does LESS THAN HALF the effort. [place] lifts, holds or supports trunk or limbs, but provides less than half the effort. 2-Substantial/Maximal Assistance-helper does MORE THAN HALF the effort. [place] lifts or holds trunk or limbs and provides more than half the effort. 2-Vtvofhvad-kftmsh does ALL the effort. Patient does none of the effort to complete the activity. Or, the assistance of 2 or more helpers is required for the patient to complete the activity. If activity was not attempted, code reason: 7-Patient Refused. 9-Not Applicable-not attempted and the patient did not perform the activity b efore the current illness, exacerbation or injury. 10-Not Attempted due to Environmental Limitations-(lack of equipment, weather restraints, etc.). 88-Not Attempted due to Medical Conditions or Safety Concerns. Roll Left to Right (QC): 6 Sit to Lying (QC): 6 Sit to Stand (QC): 6 Chair/Csd-hl-Lsjxa Xfer(QC): 6 Car Transfer (QC): 4 Gait Training Does the Patient Walk?: Yes Walk 10 feet (QC): 5 Walk 50 ft with 2 Turns(QC): 5 Walk 150 ft (QC): 5 Walking 10ft/uneven surface-QC: 5 Gait Persons Needed: 1 Gait Assistive Device: FWW Wheelchair Training Does the Pt Use a Wheelchair?: No Wheel 50 ft with 2 turns (QC): 9 Wheel 150 ft (QC): 9 Type of Wheelchair: N/A Stair Training Stair Training: Handrails/: 2 handrails #of Steps: 8 1 Step (curb) (QC): 4 4 Steps (QC): 5 12 Steps (QC): 4 Stairs: Pattern: Reciprocal Balance Picking up an Object (QC): 4 (SBA) ADL-Treatment Eating (QC): 6 Oral Hygiene (QC): 6 Shower/Bathe Self (QC): 4 (Supervision) Upper Body Dressing (QC): 4 (SBA) Lower Body Dressing (QC): 4 (SBA) On/Off Footwear (QC): 6 Toileting Hygiene (QC): 4 (SBA) Toilet Transfer (QC): 4 (SBA) Assessment/Plan Assessment and Plan Assess & Plan/Chief Complaint Assessment: Debility Status post acute kidney injury resolved with IV fluid Hypertension Chronic atrial fibrillation Oral anticoagulation Right arm injury History of traumatic brain injury Plan: Encourage oral nutrition Inpatient rehab protocol Monitor closely 02/19/2021: Monitoring closely Eliquis 5 mg twice daily Fall risk 02/20/2021: Supportive care Fall risk prevention 02/21/21: Monitor pain DC Sun morning (1) Debility (2) Dehydration Status: Acute (3) Renal insufficiency Status: Acute WILLIAM RANDALL DO Feb 21, 2021 09:15
--- NOTE | 2021-02-21 10:18 | Occupational Ther Daily Note ---
OT Current Status-Daily Note Subjective Pt sitting in recliner, alert. No c/o pain. Pt agrees to therapy. Mental Status/Objective Patient Orientation: Person, Place, Time, Situation ADL-Treatment Pt agrees to shower. Pt. recliner<->FWW independently, ambulates to shower bench by self with no LOB using FWW. Pt sits using grabbars for stability. Therapy Code Descriptions/Definitions Functional [place] Measure: 0=Not Assessed/NA 4=Minimal Assistance 1=Total Assistance 5=Supervision or Setup 2=Maximal Assistance 6=Modified [place] 3=Moderate Assistance 7=Complete IndependenceSCALE: Activities may be completed with or without assistive devices. 3-Njljibkijn-ljllbop completes the activity by him/herself with no assistance from a helper. 5-Set-up or Clean-up Assistance-helper sets up or cleans up; patient completes activity. [place] assists only prior to or following the activity. 4-Supervision or Touching Assistance-helper provides verbal cues and/or touching/steadying and/or contact guard assistance as patient completes activity. Assistance may be provided throughout the activity or intermittently. 3-Partial/Moderate Assistance-helper does LESS THAN HALF the effort. [place] lifts, holds or supports trunk or limbs, but provides less than half the effort. 2-Substantial/Maximal Assistance-helper does MORE THAN HALF the effort. [place] lifts or holds trunk or limbs and provides more than half the effort. 1-Lphqbonwb-itcoxx does ALL the effort. Patient does none of the effort to complete the activity. Or, the assistance of 2 or more helpers is required for the patient to complete the activity. If activity was not attempted, code reason: 7-Patient Refused. 9-Not Applicable-not attempted and the patient did not perform the activity before the current illness, exacerbation or injury. 10-Not Attempted due to Environmental Limitations-(lack of equipment, weather restraints, etc.). 88-Not Attempted due to Medical Conditions or Safety Concerns. Oral Hygiene (QC): 6 (Independent, pt completes while standing at sink by self using counter top for stability.) Bathing Location: L Arm, R Arm, L Upper Leg, R Upper Leg, L Lower Leg (including foot), R Lower Leg (including foot), Chest, Abdomen, Buttocks, Perineal Area Shower/Bathe Self (QC): 6 (Independent, pt gathers clothing byself using FWW for stability, pt cleanses all areas by self while seated except buttocks and bijan area which pt stands using grabbars to cleanse by self.) Upper Body Dressing (QC): 6 (Independent, pt gathers clothing and completes by self while seated on shower bench) Lower Body Dressing (QC): 6 (Independent, pt completes while seated on shower bench) On/Off Footwear: 6 (Pt completes independently while seated ) Other Treatment Pt seated in recliner<-> FWW by self, ambulated to therapy room, VC given for pt to slow down. Pt participated in dynamic standing activity to place cones in cabinet in ARU kitchen. Pt placed/retrieved cones high/low in cabinets by reaching and by stooping using FWW and counter for stability. Skilled instruction given on proper body mechanics when stooping to reach objects. Pt demonstrated good return on skilled instruction. After session, pt sitting in recliner with call light/phone within reach. All needs met in room. Education OT Patient Education: Purpose of tx/functional activities, Safety issues Teaching Recipient: Patient Teaching Methods: Demonstration, Discussion Response to Teaching: Verbalize Understanding, Return Demonstration OT Short Term Goals Short Term Goals Time Frame: Feb 26, 2021 Toileting hygiene: 6 Upper body dressin OT Interactive Account Manager Goals Skilled Nursing Goals Time Frame: Mar 05, 2021 Eating (QC): 6 Oral Hygiene (QC): 6 Toileting Hygiene (QC): 6 Shower/Bathe Self (QC): 6 Upper Body Dressing (QC): 6 Lower Body Dressing (QC): 6 On/Off Footwear (QC): 6 Additional Goals: 1-Demonstrate ADL Tasks, 2-Verbalize Understanding, 3- ImproveStrength/[place] 1=Demonstrate adherence to instructed precautions during ADL tasks. 2=Patient will verbalize/demonstrate understanding of assistive devices/modifications for ADL. 3=Patient will improve strength/tolerance for activity to enable patient to perform ADL's. OT Education/Plan Problem List/Assessment Assessment: Decreased Safety Aware, Impaired Funct Balance, Impaired Self-Care Skills Pt would benefit from skilled OT to increase her independence in basic self care to allow her to safely return to her home Discharge Recommendations Plan/Recommendations: Continue POC Treatment Plan/Plan of Care Patient would benefit from OT for education, treatment and training to promote independence in ADL's, mobility, safety and/or upper extremity function for ADL's. Plan of Care: ADL Retraining, Cognitive Retraining, Concurrent Therapy, Functional Mobility Treatment Duration: Feb 19, 2021 Frequency: 5 times per week Estimated Hrs Per Day: .5 hour per day Agreement: Yes Rehab Potential: Good Time/GCodes Start Time: 09:00 Stop Time: 10:15 Total Time Billed (hr/min): 75 Billed Treatment Time 1 Visit- ADL 4 (60 min) FA (15 min) YUAN GOOD Feb 21, 2021 10:18
--- NOTE | 2021-02-21 11:53 | ST Cognitive Linguistic Eval ---
Speech Evaluation-General Medical Diagnosis debility, hx TBI Onset Date: Feb 17, 2021 Therapy Diagnosis Therapy Diagnosis: Cognitive-communication Referral Referring Physician: Dr. Chapa Medical History Pertinent Medical History: Atrial Fib, DM, HTN Reviewed History: Yes Social History Current Living Status: Alone Speech PLF-Current Status Prior Level of Function Patient lives home alone, however she does have very involved family who live near by. Subjective Patient was very pleasant and cooperative with the cognitive assessment. Language Eval: Auditory Comprehends Simple Yes/No Ques: Functional Indent/Objects Multiple [place]: Functional Ident/Pics in Multiple [place]: Functional Follows 1-Step Commands: Functional Follows Complex Directions: Functional Follows General Conversations: Functional Language Eval: Verbal Language Completes Spontaneous Greeting: Functional Produces Auto, Serial Info: Functional Imitates Simple Words/Phrases: Functional Word Finding: Functional Requests Basic Needs: Functional States Basic Personal Info: Functional Expresses Complex Ideas: Functional Objective Cognitive Domain Attention: WNL Memory: WNL Problem Solving: Functional Executive Functions: WNL Visuospatial Skills: WNL Composite Severity Rating: WNL Clock Drawing Severity Rating: WNL Objective Formal/Standardized Tests [facility] Mental Status ([facility]) Results 29/30, within normal range of function Oral Motor/Speech Production Within Normal Limits Impression Patient is a very pleasant 89 y/o female who was admitted to the ARU due to a fall with injury. The patient is oriented to all concepts. She demonstrated memory for events surrounding the two falls. She was given the SLUMS with a score of 29/30 obtained. This score is within the normal range of function and does not indicate the need for further ST services. Speech Patient Assess Expression of Ideas/Wants: Expression (4) Understanding Verbal Content: Understands (4) Brief Interview-Mental Status: Yes Repetition of Three Words: Three (3) Temporal Orientation: Year: Correct (3) Temporal Orientation: Month: Accurate within 5 days(2) Temporal Orientation: Day: Correct (1) Recall : Wear to say "Sock": Yes, no cue required (2) Recall : Color: Yes, no cue required (2) Recall : Bed: Yes, no cue required (2) Memory/Recall Ability: Current season, Location of own room, Staff names and faces, That he or she is in a hsp/hsp unit Speech-Plan Patient/Family Goals Patient/Family Goals: Patient plans on returning to her home where she lives alone. She will continue to have family near by who will assist her as needed. Treatment Plan Speech Therapy Treatment Plan: Discontinue ST Treatment Duration: Feb 21, 2021 Frequency: 1 time per week Estimated Hrs Per Day: .5 hour per day Rehab Potential: Good Barriers to Learning: None identified Pt/Family Agrees to Plan: Yes Safety Risks/Education Teaching Recipient: Patient Teaching Methods: Discussion Response to Teaching: Verbalize Understanding Education Topics Provided: Safety and communication Time Speech Therapy Time In: 10:30 Speech Therapy Time Out: 11:00 Total Billed Time: 30 Billed Treatment Time 1, KRISTI HARRIS [address] Feb 21, 2021 11:53
--- NOTE | 2021-02-21 13:04 | Physical Therapy Daily Note ---
PT Daily Note-Current Subjective Pt. agrees to Rx. States she ate big lunch and is so full. Had such a great lunch. Pain Location: No Pain Reported Mental Status Patient Orientation: Normal For Age Transfers SCALE: Activities may be completed with or without assistive devices. 4-Eunthpzeon-sqgjvdc completes the activity by him/herself with no assistance from a helper. 5-Set-up or Clean-up Assistance-helper sets up or cleans up; patient completes activity. [place] assists only prior to or following the activity. 4-Supervision or Touching Assistance-helper provides verbal cues and/or touching/steadying and/or contact guard assistance as patient completes activity. Assistance may be provided throughout the activity or intermittently. 3-Partial/Moderate Assistance-helper does LESS THAN HALF the effort. [place] lifts, holds or supports trunk or limbs, but provides less than half the effort. 2-Substantial/Maximal Assistance-helper does MORE THAN HALF the effort. [place] lifts or holds trunk or limbs and provides more than half the effort. 4-Fwekgwnve-amuecf does ALL the effort. Patient does none of the effort to complete the activity. Or, the assistance of 2 or more helpers is required for the patient to complete the activity. If activity was not attempted, code reason: 7-Patient Refused. 9-Not Applicable-not attempted and the patient did not perform the activity before the current illness, exacerbation or injury. 10-Not Attempted due to Environmental Limitations-(lack of equipment, weather restraints, etc.). 88-Not Attempted due to Medical Conditions or Safety Concerns. all TRFs indep Gait Training Gait Assistive Device: FWW 175 ft x 2 SBA to Mod I Neuromuscular balance challenges from EDWARDS : SLS 4-5 sec , alt steps 9 in 20 sec no LOB, narrow based stance 30 s no LOB, TRF chair to chair at 90 degrees no hands, no LOB Assessment Current Status: Good Progress will upgrade pt. to up ad jonatan tomorrow if PT deems PT Toy Maker Goals Toy Maker Goals PT Toy Maker Goals Time Frame: Mar 05, 2021 Roll Left & Right (QC): 6 Sit to Lying (QC): 6 Lying-Sitting on Side/Bed(QC): 6 Sit to Stand (QC): 6 Chair/Cwe-ro-Xdhuw Xfer(QC): 6 Toilet Transfer (QC): 6 Car Transfer (QC): 6 Does the Patient Walk: Yes Walk 10 feet (QC): 6 Walk 50ft with 2 Turns (QC): 6 Walk 150 ft (QC): 6 Walking 10ft on Uneven Surface: 6 1 Step (curb) (QC): 6 4 Steps (QC): 6 12 Steps (QC): 6 Picking up an Object (QC): 6 Wheel 50 feet with 2 turns (QC: 9 Type: N/A Wheel 150 feet: 9 Type: N/A PT Plan Treatment/Plan Treatment Plan: Continue Plan of Care Treatment Plan: Bed Mobility, Concurrent Therapy, Education, Functional Activity [place], Functional Strength, Group Therapy, Gait, Safety, Therapeutic Exercise, Transfers Treatment Duration: Mar 05, 2021 Frequency: At least 5 of 7 days/Wk (IRF) Estimated Hrs Per Day: 1.5 hours per day Patient and/or Family Agrees t: Yes Safety Risks/Education Patient Education: Gait Training, Transfer Techniques, Safety Issues Time/GCodes Time In: 1240 Time Out: 1255 Total Billed Treatment Time: 15 Total Billed Treatment 1,NM15m ANTWAN GROSS PTA Feb 21, 2021 13:04
[2021-02-21 19:33] VITALS: BP 122/66
[2021-02-21] MEDS: SIMvastatin 40 MG (ZOCOR) TAB PO SCH (20:12)
[2021-02-22] MEDS: inSUlin ASPART (NovoLOG) 1 UNIT/0.01 ML (CHARGE PER UNIT) SC SCH ×4 (05:41→21:00)
[2021-02-22] MEDS: MULTIVIT W/MINERALS TAB (THERAGRAN M) PO SCH (05:47)
[2021-02-22 07:51] VITALS: BP 113/69
[2021-02-22] MEDS: DAPAGLIFLOZIN 5 MG PO SCH (08:22)
[2021-02-22] MEDS: GINKGO BILOBA PO SCH (08:23)
[2021-02-22] MEDS: PRESERVISION AREDS SOFTGEL (BAUSH & LOMB) PO SCH ×2 (08:23→22:36)
[2021-02-22] MEDS: FERROUS SULF 325 MG (IRON) TAB PO SCH (08:24)
[2021-02-22] MEDS: SENNA W/DOCUSATE (SENOKOT S) TABLET PO SCH ×2 (08:24→21:00)
[2021-02-22] MEDS: ASCORBIC ACID (VIT C) 500 MG TABLET PO SCH (08:25)
[2021-02-22] MEDS: APIXABAN 5 MG (ELIQUIS) TABLET PO SCH ×2 (08:25→22:36)
[2021-02-22] MEDS: DOCUSATE SODIUM 100 MG (COLACE) CAP PO SCH ×2 (08:25→22:36)
[2021-02-22] MEDS: VITAMIN D3 25 MCG (1,000 UNITS) TABLET PO SCH (08:25)
[2021-02-22] MEDS: polyethylene glycoL POWDER 17 GM (MIRALAX) PACK PO SCH ×2 (08:26→21:00)
[2021-02-22] MEDS: DICLOFENAC 1% GEL 100 GM (VOLTAREN) TUBE TOP SCH ×4 (08:32→22:35)
--- NOTE | 2021-02-22 08:59 | Occupational Ther Daily Note ---
OT Current Status-Daily Note Subjective Pt sitting in recliner, alert. No c/o pain. Pt agrees to therapy. Mental Status/Objective Patient Orientation: Person, Place, Time, Situation ADL-Treatment Session 1- ([id number]) Pt sit<->stand using arm rests and FWW for stability. Pt ambulates to bathroom using FWW independently. After toileting and dressing, pt made bed while standing using bed rails and FWW for stability. Pt ambulated using FWW to closet and rearranged clothing in closet using FWW for stability. Pt demonstrated folding towels from bedside while standing and put them by sink using no AD. Pt wanted more wash clothes for bathroom, ambulated around ARU to gather wash clothes using FWW. Pt ambulated back to room using FWW. Pt folded wash clothes in standing and placed by sink using FWW for stability. After session, pt in recliner with call light/phone within reach. All needs met in room. Therapy Code Descriptions/Definitions Functional [place] Measure: 0=Not Assessed/NA 4=Minimal Assistance 1=Total Assistance 5=Supervision or Setup 2=Maximal Assistance 6=Modified [place] 3=Moderate Assistance 7=Complete IndependenceSCALE: Activities may be completed with or without assistive devices. 6-Lfvoxyiuyv-syaqfqb completes the activity by him/herself with no assistance from a helper. 5-Set-up or Clean-up Assistance-helper sets up or cleans up; patient completes activity. [place] assists only prior to or following the activity. 4-Supervision or Touching Assistance-helper provides verbal cues and/or touching/steadying and/or contact guard assistance as patient completes activity. Assistance may be provided throughout the activity or intermittently. 3-Partial/Moderate Assistance-helper does LESS THAN HALF the effort. [place] lifts, holds or supports trunk or limbs, but provides less than half the effort. 2-Substantial/Maximal Assistance-helper does MORE THAN HALF the effort. [place] lifts or holds trunk or limbs and provides more than half the effort. 0-Accsdhekj-yuusjm does ALL the effort. Patient does none of the effort to complete the activity. Or, the assistance of 2 or more helpers is required for the patient to complete the activity. If activity was not attempted, code reason: 7-Patient Refused. 9-Not Applicable-not attempted and the patient did not perform the activity before the current illness, exacerbation or injury. 10-Not Attempted due to Environmental Limitations-(lack of equipment, weather restraints, etc.). 88-Not Attempted due to Medical Conditions or Safety Concerns. Eating (QC): 6 (Per clinical judgment, pt independent using regular utensils, opening containers.) Oral Hygiene (QC): 6 (Independent, standing at sink using counter for stability.) Upper Body Dressing (QC): 6 (Independent, pt gathers clothing from closet using FWW for stability, completes while seated.) Lower Body Dressing (QC): 6 (Independently gathers clothing using FWW and don/doffs clothing.) On/Off Footwear: 6 (Independent, pt able to don/doff socks.) Toileting Hygiene (QC): 6 (Independent with toileting hygiene and clothing manipulation.) Toilet Transfer (QC): 6 (Independent, pt completes using FWW and grabbars, uses standard toilet.) Other Treatment Session 2- ([id number]) Pt sitting in recliner, given skilled instruction on home safety and fall prevention. Pt demonstrated good return on skilled instruction. Pt sit<->stand using arm rests and FWW for stability, ambulates to toilet using FWW. Pt manages clothing using grabbars for stability, cleanses self. Pt demonstrates functional mobility by ambulating to therapy gym and back to room using FWW for stability. After session, pt in recliner with call light/phone within reach. All needs met in room. Education OT Patient Education: Safety issues Teaching Recipient: Patient Teaching Methods: Handout, Discussion Response to Teaching: Verbalize Understanding, Return Demonstration OT Short Term Goals Short Term Goals Time Frame: Feb 26, 2021 Toileting hygiene: 6 Upper body dressin OT [facility] Goals [facility] Goals Time Frame: Mar 05, 2021 Eating (QC): 6 (met) Oral Hygiene (QC): 6 (met) Toileting Hygiene (QC): 6 (met) Shower/Bathe Self (QC): 6 (met) Upper Body Dressing (QC): 6 (met) Lower Body Dressing (QC): 6 (met) On/Off Footwear (QC): 6 (met) Additional Goals: 1-Demonstrate ADL Tasks, 2-Verbalize Understanding, 3- ImproveStrength/[place] 1=Demonstrate adherence to instructed precautions during ADL tasks. 2=Patient will verbalize/demonstrate understanding of assistive devices/modifications for ADL. 3=Patient will improve strength/tolerance for activity to enable patient to perform ADL's. OT Education/Plan Problem List/Assessment Assessment: Impaired Coordination, Impaired Funct Balance, Impaired I ADL's, Impaired Self-Care Skills Pt would benefit from skilled OT to increase her independence in basic self care to allow her to safely return to her home Discharge Recommendations Plan/Recommendations: Continue POC Treatment Plan/Plan of Care Patient would benefit from OT for education, treatment and training to promote independence in ADL's, mobility, safety and/or upper extremity function for ADL's. Plan of Care: ADL Retraining, Cognitive Retraining, Concurrent Therapy, Functional Mobility Treatment Duration: Feb 19, 2021 Frequency: 5 times per week Estimated Hrs Per Day: .5 hour per day Agreement: Yes Rehab Potential: Good Time/GCodes Start Time: 08:00 (1300) Stop Time: 09:00 (1330) Total Time Billed (hr/min): 90 Billed Treatment Time 1 Visit- ([id number]) ADL 2 (30 min) FA 2 (30 min) 1 Visit-([id number]) ADL (10 min) FA (20 min) YUAN GOOD Feb 22, 2021 08:59
--- NOTE | 2021-02-22 09:23 | PM&R Progress Note ---
Subjective HPI/CC On Admission Date Seen by Provider: Feb 22, 2021 Time Seen by Provider: 09:30 Subjective/Events-last exam 02/22/2021: Patient doing well Ready for discharge tomorrow Pacemaker evaluation at [facility] tomorrow 02/21/21: Pt doing well Diclofenac gel to the right shoulder is much improved Will DC on Sunday prior to cardiology appointment prior to 9 o'clock in [place] 02/20/2021: Patient doing very well Ambulating around Fall risk prevention education Goes to cardiology for pacemaker evaluation on 02/23/2021 02/19/21: Patient doing really well today Younger son is visiting Discontinue the supplement she does not want to take Eliquis clarified to 5 mg twice daily Feels like she is gaining already Ambulating around pretty well Review of Systems General: Fatigue Objective Exam Vital Signs Vital Signs Date Time Temp Pulse Resp B/P (MAP) Pulse Ox O2 Delivery O2 Flow Rate FiO2 02/22/21 08:43 95 Room Air 02/22/21 07:51 36.2 81 16 113/69 (84) 02/18/21 17:58 99.00 Capillary Refill : General Appearance: No Apparent Distress, WD/WN, Chronically ill HEENT: PERRL/EOMI, Normal ENT Inspection, Pharynx Normal Neck: Full Range of Motion, Normal Inspection, Non Tender, Supple, Carotid Bruit Respiratory: Chest Non Tender, Lungs Clear, Normal Breath Sounds, No Accessory Muscle Use, No Respiratory Distress Cardiovascular: Regular Rate, Rhythm, No Edema, No Gallop, No JVD, No Murmur, Normal Peripheral Pulses Gastrointestinal: Normal Bowel Sounds, No Organomegaly, No Pulsatile Mass, Non Tender, Soft Back: Normal Inspection, No CVA Tenderness, No Vertebral Tenderness Extremity: Normal Capillary Refill, Normal Inspection, Normal Range of Motion (Except right arm in sling), Non Tender, No Calf Tenderness, No Pedal Edema Neurologic/Psychiatric: Alert, Oriented x3, No Motor/Sensory Deficits, Normal Mood/Affect, airframe and powerplant technician II-XII Norm as Tested, Motor Weakness (Generalized) Skin: Normal Color, Warm/Dry Lymphatic: No Adenopathy Results/Procedures Lab Patient resulted labs reviewed. FIM Transfers Therapy Code Descriptions/Definitions Functional [place] Measure: 0=Not Assessed/NA 4=Minimal Assistance 1=Total Assistance 5=Supervision or Setup 2=Maximal Assistance 6=Modified [place] 3=Moderate Assistance 7=Complete IndependenceSCALE: Activities may be completed with or without assistive devices. 0-Vvtkzgnckc-dnzpifx completes the activity by him/herself with no assistance from a helper. 5-Set-up or Clean-up Assistance-helper sets up or cleans up; patient completes activity. [place] assists only prior to or following the activity. 4-Supervision or Touching Assistance-helper provides verbal cues and/or touching/steadying and/or contact guard assistance as patient completes a ctivity. Assistance may be provided throughout the activity or intermittently. 3-Partial/Moderate Assistance-helper does LESS THAN HALF the effort. [place] lifts, holds or supports trunk or limbs, but provides less than half the effort. 2-Substantial/Maximal Assistance-helper does MORE THAN HALF the effort. [place] lifts or holds trunk or limbs and provides more than half the effort. 2-Qyhjpeumh-umeolp does ALL the effort. Patient does none of the effort to complete the activity. Or, the assistance of 2 or more helpers is required for the patient to complete the activity. If activity was not attempted, code reason: 7-Patient Refused. 9-Not Applicable-not attempted and the patient did not perform the activity before the current illness, exacerbation or injury. 10-Not Attempted due to Environmental Limitations-(lack of equipment, weather restraints, etc.). 88-Not Attempted due to Medical Conditions or Safety Concerns. Roll Left to Right (QC): 6 Sit to Lying (QC): 6 Sit to Stand (QC): 6 Chair/Xmt-vv-Yobrv Xfer(QC): 6 Car Transfer (QC): 4 Gait Training Does the Patient Walk?: Yes Walk 10 feet (QC): 5 Walk 50 ft with 2 Turns(QC): 5 Walk 150 ft (QC): 5 Walking 10ft/uneven surface-QC: 5 Gait Persons Needed: 1 Gait Assistive Device: FWW Wheelchair Training Does the Pt Use a Wheelchair?: No Wheel 50 ft with 2 turns (QC): 9 Wheel 150 ft (QC): 9 Type of Wheelchair: N/A Stair Training Stair Training: Handrails/: 2 handrails #of Steps: 8 1 Step (curb) (QC): 4 4 Steps (QC): 5 12 Steps (QC): 4 Stairs: Pattern: Reciprocal Balance Picking up an Object (QC): 4 (SBA) ADL-Treatment Eating (QC): 6 Oral Hygiene (QC): 6 (Independent, pt completes while standing at sink using counter for stability.) Bathing Location: L Arm, R Arm, L Upper Leg, R Upper Leg, L Lower Leg (including foot), R Lower Leg (including foot), Chest, Abdomen, Buttocks, Perineal Area Shower/Bathe Self (QC): 6 (Independent, pt gathers clothing byself using FWW for stability, pt cleanses all areas by self while seated except buttocks and bijan area which pt stands using grabbars to cleanse by self.) Upper Body Dressing (QC): 6 (Independent, pt gathers clothing from closet using FWW for stability, completes while seated.) Lower Body Dressing (QC): 6 (Pt gathers clothing using FWW for stability, able to don/doff independently using FWW for stability.) On/Off Footwear (QC): 6 (Independent, pt able to don/doff socks while seated.) Toileting Hygiene (QC): 6 (Independent, pt manages clothing using grabbars for stability, cleanses self seated on standard toilet.) Toilet Transfer (QC): 6 (Independent, pt completes using FWW and grabbars, uses standard toilet.) Assessment/Plan Assessment and Plan Assess & Plan/Chief Complaint Assessment: Debility Status post acute kidney injury resolved with IV fluid Hypertension Chronic atrial fibrillation Oral anticoagulation Right arm injury History of traumatic brain injury Plan: Encourage oral nutrition Inpatient rehab protocol Monitor closely 02/19/2021: Monitoring closely Eliquis 5 mg twice daily Fall risk 02/20/2021: Supportive care Fall risk prevention 02/21/21: Monitor pain DC Wed morning 02/22/2021: Discharge tomorrow (1) Debility (2) Dehydration Status: Acute (3) Renal insufficiency Status: Acute WILLIAM RANDALL DO Feb 22, 2021 09:23
[2021-02-22] MEDS ORDERED: APIX2.5T PO (09:34)
[2021-02-22] MEDS ORDERED: DICL100G13 TOP (09:35)
--- NOTE | 2021-02-22 11:55 | Physical Therapy Daily Note ---
PT Daily Note-Current Subjective Patient agrees to PT. Patient is highly motivated to return to home tomorrow. Pain Numeric Pain Scale: 0-No Pain Location: No Pain Reported Mental Status Patient Orientation: Normal For Age Transfers SCALE: Activities may be completed with or without assistive devices. 6-Nqhglxfixl-jkvvjde completes the activity by him/herself with no assistance from a helper. 5-Set-up or Clean-up Assistance-helper sets up or cleans up; patient completes activity. [place] assists only prior to or following the activity. 4-Supervision or Touching Assistance-helper provides verbal cues and/or touching/steadying and/or contact guard assistance as patient completes activity. Assistance may be provided throughout the activity or intermittently. 3-Partial/Moderate Assistance-helper does LESS THAN HALF the effort. [place] lifts, holds or supports trunk or limbs, but provides less than half the effort. 2-Substantial/Maximal Assistance-helper does MORE THAN HALF the effort. [place] lifts or holds trunk or limbs and provides more than half the effort. 4-Vvmzrtpzd-rlhzzi does ALL the effort. Patient does none of the effort to complete the activity. Or, the assistance of 2 or more helpers is required for the patient to complete the activity. If activity was not attempted, code reason: 7-Patient Refused. 9-Not Applicable-not attempted and the patient did not perform the activity before the current illness, exacerbation or injury. 10-Not Attempted due to Environmental Limitations-(lack of equipment, weather restraints, etc.). 88-Not Attempted due to Medical Conditions or Safety Concerns. Roll Left & Right (QC): 6 Sit to Lying (QC): 6 Lying to Sitting/Side of Bed(Q: 6 Sit to Stand (QC): 6 Chair/Nrv-xb-Pbigi Xfer(QC): 6 Toilet Transfer (QC): 6 Car Transfer (QC): 6 Gait Training Does the Patient Walk?: Yes Distance: 500' x 3 Walk 10 feet (QC): 6 Walk 50 ft with 2 Turns(QC): 6 Walk 150 ft (QC): 6 Walking 10ft/uneven surface-QC: 6 Gait Assistive Device: FWW patient negotiated in [place] (very small aisles and spaces) Stair Training Stair Training: Handrails/: 2 handrails #of Steps: 12 1 Step (curb) (QC): 6 4 Steps (QC): 6 12 Steps (QC): 6 Stairs: Pattern: Reciprocal Balance Picking up an Object (QC): 6 Exercises Supine Ex: Ankle pumps, Quad Set, Glut sets, Heel Slides, Straight leg raise Supine Reps: 12 NuStep Minutes: 10 NuStep Workload: 3 Assessment Patient is safe to be up in room ad jonatan. Nursing notified. Patient as attained all functional goals. PT City Planning Aide Goals City Planning Aide Goals PT Long-Term Goals Time Frame: Mar 05, 2021 Roll Left & Right (QC): 6 (met 02/22/21) Sit to Lying (QC): 6 (met 02/22/21) Lying-Sitting on Side/Bed(QC): 6 (met 02/22/21) Sit to Stand (QC): 6 (met 02/22/21) Chair/Hjf-cr-Rtjkt Xfer(QC): 6 (met 02/22/21) Toilet Transfer (QC): 6 (met 02/22/21) Car Transfer (QC): 6 (met 02/22/21) Does the Patient Walk: Yes Walk 10 feet (QC): 6 (met 02/22/21) Walk 50ft with 2 Turns (QC): 6 (met 02/22/21) Walk 150 ft (QC): 6 (met 02/22/21) Walking 10ft on Uneven Surface: 6 (met 02/22/21) 1 Step (curb) (QC): 6 (met 02/22/21) 4 Steps (QC): 6 (met 02/22/21) 12 Steps (QC): 6 (met 02/22/21) Picking up an Object (QC): 6 (met 02/22/21) Wheel 50 feet with 2 turns (QC: 9 Type: N/A Wheel 150 feet: 9 Type: N/A PT Plan Treatment/Plan Treatment Plan: Continue Plan of Care Treatment Plan: Bed Mobility, Concurrent Therapy, Education, Functional Activity [place], Functional Strength, Group Therapy, Gait, Safety, Therapeutic Exercise, Transfers Treatment Duration: Mar 05, 2021 Frequency: At least 5 of 7 days/Wk (IRF) Estimated Hrs Per Day: 1.5 hours per day Patient and/or Family Agrees t: Yes Time/GCodes Time In: 1040 Time Out: 1145 Total Billed Treatment Time: 65 Total Billed Treatment 1 visit FA x 3 50 min EX 15 min CRYSTAL MENDEZ PT Feb 22, 2021 11:55
--- NOTE | 2021-02-22 14:17 | Physical Therapy Daily Note ---
PT Daily Note-Current Subjective Patient agrees to PT. No c/o. Mental Status Patient Orientation: Normal For Age Transfers SCALE: Activities may be completed with or without assistive devices. 8-Wozpxokazi-cxrxrwf completes the activity by him/herself with no assistance from a helper. 5-Set-up or Clean-up Assistance-helper sets up or cleans up; patient completes activity. [place] assists only prior to or following the activity. 4-Supervision or Touching Assistance-helper provides verbal cues and/or touching/steadying and/or contact guard assistance as patient completes activity. Assistance may be provided throughout the activity or intermittently. 3-Partial/Moderate Assistance-helper does LESS THAN HALF the effort. [place] lifts, holds or supports trunk or limbs, but provides less than half the effort. 2-Substantial/Maximal Assistance-helper does MORE THAN HALF the effort. [place] lifts or holds trunk or limbs and provides more than half the effort. 2-Mkpvgyxzf-kfogdk does ALL the effort. Patient does none of the effort to c omplete the activity. Or, the assistance of 2 or more helpers is required for the patient to complete the activity. If activity was not attempted, code reason: 7-Patient Refused. 9-Not Applicable-not attempted and the patient did not perform the activity before the current illness, exacerbation or injury. 10-Not Attempted due to Environmental Limitations-(lack of equipment, weather restraints, etc.). 88-Not Attempted due to Medical Conditions or Safety Concerns. Sit to Stand (QC): 6 Gait Training Distance: 500' x 2 Walk 10 feet (QC): 6 Walk 50 ft with 2 Turns(QC): 6 Walk 150 ft (QC): 6 Walking 10ft/uneven surface-QC: 6 Gait Assistive Device: FWW safe and functional with no deviation Assessment Current Status: Excellent Progress PT Machine Shop Helper Goals Machine Shop Helper Goals PT Senior Living Goals Time Frame: Mar 05, 2021 Roll Left & Right (QC): 6 (met 02/22/21) Sit to Lying (QC): 6 (met 02/22/21) Lying-Sitting on Side/Bed(QC): 6 (met 02/22/21) Sit to Stand (QC): 6 (met 02/22/21) Chair/Bdb-un-Tmkkd Xfer(QC): 6 (met 02/22/21) Toilet Transfer (QC): 6 (met 02/22/21) Car Transfer (QC): 6 (met 02/22/21) Does the Patient Walk: Yes Walk 10 feet (QC): 6 (met 02/22/21) Walk 50ft with 2 Turns (QC): 6 (met 02/22/21) Walk 150 ft (QC): 6 (met 02/22/21) Walking 10ft on Uneven Surface: 6 (met 02/22/21) 1 Step (curb) (QC): 6 (met 02/22/21) 4 Steps (QC): 6 (met 02/22/21) 12 Steps (QC): 6 (met 02/22/21) Picking up an Object (QC): 6 (met 02/22/21) Wheel 50 feet with 2 turns (QC: 9 Type: N/A Wheel 150 feet: 9 Type: N/A PT Plan Treatment/Plan Treatment Plan: Continue Plan of Care Treatment Plan: Bed Mobility, Concurrent Therapy, Education, Functional Activity [place], Functional Strength, Group Therapy, Gait, Safety, Therapeutic Exercise, Transfers Treatment Duration: Mar 05, 2021 Frequency: At least 5 of 7 days/Wk (IRF) Estimated Hrs Per Day: 1.5 hours per day Patient and/or Family Agrees t: Yes Time/GCodes Time In: 1350 Time Out: 1415 Total Billed Treatment Time: 25 Total Billed Treatment 1 visit FA x 2 25 min CRYSTAL MENDEZ PT Feb 22, 2021 14:17
[2021-02-22 20:00] VITALS: BP 127/69
[2021-02-22] MEDS: SIMvastatin 40 MG (ZOCOR) TAB PO SCH (22:36)
--- NOTE | 2021-02-23 05:44 | Discharge Summary ---
Diagnosis/Chief Complaint Date of Admission Feb 18, 2021 at 17:28 Date of Discharge Discharge Date: Feb 23, 2021 Discharge Diagnosis Assessment: Debility Status post acute kidney injury resolved with IV fluid Hypertension Chronic atrial fibrillation Oral anticoagulation Right arm injury History of traumatic brain injury Plan: Encourage oral nutrition Inpatient rehab protocol Monitor closely 02/19/2021: Monitoring closely Eliquis 5 mg twice daily Fall risk 02/20/2021: Supportive care Fall risk prevention 02/21/21: Monitor pain DC Sun02/22/2021: Discharge tomorrow (1) Debility (2) Dehydration Status: Acute (3) Renal insufficiency Status: Acute Discharge Summary Discharge Physical Examination Allergies: Coded Allergies: aspirin (Verified Allergy, Mild, Hives, 08/21/19) cerivastatin (Verified Allergy, Mild, Hives, 08/21/19) ciprofloxacin (Verified Allergy, Mild, Nausea, 08/21/19) fenofibrate (Verified Allergy, Mild, Rash, 08/21/19) sulfamethoxazole (Verified Allergy, Mild, Rash, 08/21/19) trimethoprim (Verified Allergy, Mild, Rash, 08/21/19) codeine (Verified Allergy, Unknown, Nausea, 08/21/19) Vitals & I&Os Vital Signs Date Time Temp Pulse Resp B/P (MAP) Pulse Ox O2 Delivery O2 Flow Rate FiO2 02/23/21 07:45 36.3 77 18 127/69 95 Room Air 02/18/21 17:58 99.00 General Appearance: Alert, Oriented X3, Cooperative Respiratory: Clear to Auscultation Cardiovascular: Regular Rate Neuro: Normal Gait, Normal Speech, Strength at 5/5 X4 Ext Psych/Mental Status: Mental Status NL Hospital Course Was the Problem List Reviewed?: Yes Hospital course: Pt had an uneventful brief hospital course for 6 days after she was admitted following [facility] observation for dehydration and fall. She did well, was able to participate in all therapy. IV fluids helped resolve the acute kidney injury and BP remains stable. She was doing well, bowel function was normal and ready for DC. Labs (last 24 hrs) Laboratory Tests 02/18/21 17:44: Glucometer 188H 02/18/21 20:04: Glucometer 166H 02/19/21 06:05: Glucometer 135H 02/19/21 06:17: White Blood Count 4.6, Red Blood Count 4.44, Hemoglobin 14.1, Hematocrit 44, Mean Corpuscular Volume 99, Mean Corpuscular Hemoglobin 32, Mean Corpuscular Hemoglobin Concent 32, Red Cell Distribution Width 13.9, Platelet Count 133, Mean Platelet Volume 11.3, Immature Granulocyte % (Auto) 0, Neutrophils (%) (Auto) 67, Lymphocytes (%) (Auto) 18, Monocytes (%) (Auto) 9, Eosinophils (%) (Auto) 5, Basophils (%) (Auto) 1, Neutrophils # (Auto) 3.1, Lymphocytes # (Auto) 0.8L, Monocytes # (Auto) 0.4, Eosinophils # (Auto) 0.2, Basophils # (Auto) 0.0, Immature Granulocyte # (Auto) 0.0, Percent Immature Platelet Fraction 5.9, Sodium Level 140, Potassium Level 4.2, Chloride Level 110H, Carbon Dioxide Level 22, Anion Gap 8, Blood Urea Nitrogen 17, Creatinine 1.01, Estimat Glomerular Filtration Rate 52, BUN/Creatinine Ratio 17, Glucose Level 139H, Calcium Level 8.6, Corrected Calcium 9.1, Total Bilirubin 0.6, Aspartate Amino Transf (AST/SGOT) 39H, Alanine Aminotransferase (ALT/SGPT) 33, Alkaline Phosphatase 78, Total Protein 6.3L, Albumin 3.4 02/19/21 11:17: Glucometer 164H 02/19/21 16:16: Glucometer 96 02/19/21 21:31: Glucometer 123H 02/20/21 06:56: Glucometer 98 02/20/21 11:15: Glucometer 134H 02/20/21 15:16: Glucometer 157H 02/21/21 05:25: White Blood Count 7.0, Red Blood Count 4.32, Hemoglobin 13.9, Hematocrit 42, Mean Corpuscular Volume 98, Mean Corpuscular Hemoglobin 32, Mean Corpuscular Hemoglobin Concent 33, Red Cell Distribution Width 13.4, Platelet Count 143, Mean Platelet Volume 12.4H, Immature Granulocyte % (Auto) 0, Neutrophils (%) (Auto) 71, Lymphocytes (%) (Auto) 14, Monocytes (%) (Auto) 11, Eosinophils (%) (Auto) 2, Basophils (%) (Auto) 1, Neutrophils # (Auto) 5.0, Lymphocytes # (Auto) 1.0, Monocytes # (Auto) 0.8, Eosinophils # (Auto) 0.2, Basophils # (Auto) 0.1, Immature Granulocyte # (Auto) 0.0, Sodium Level 141, Potassium Level 4.2, Chloride Level 108H, Carbon Dioxide Level 21, Anion Gap 12, Blood Urea Nitrogen 18, Creatinine 0.94, Estimat Glomerular Filtration Rate 56, BUN/Creatinine Ratio 19, Glucose Level 70, Calcium Level 8.6, Corrected Calcium 9.2, Total Bilirubin 0.7, Aspartate Amino Transf (AST/SGOT) 48H, Alanine Aminotransferase (ALT/SGPT) 40, Alkaline Phosphatase 86, Total Protein 6.3L, Albumin 3.3 02/21/21 10:56: Glucometer 178H 02/21/21 15:14: Glucometer 135H 02/21/21 20:17: Glucometer 177H 02/22/21 05:37: Glucometer 91 02/22/21 10:53: Glucometer 114H 02/22/21 16:51: Glucometer 97 02/22/21 22:34: Glucometer 197H 02/23/21 06:38: Glucometer 167H Pending Labs Laboratory Tests 02/18/21 17:44: Glucometer 188 02/18/21 20:04: Glucometer 166 02/19/21 06:05: Glucometer 135 02/19/21 06:17: White Blood Count 4.6, Red Blood Count 4.44, Hemoglobin 14.1, Hematocrit 44, Mean Corpuscular Volume 99, Mean Corpuscular Hemoglobin 32, Mean Corpuscular Hemoglobin Concent 32, Red Cell Distribution Width 13.9, Platelet Count 133, Mean Platelet Volume 11.3, Immature Granulocyte % (Auto) 0, Neutrophils (%) (Auto) 67, Lymphocytes (%) (Auto) 18, Monocytes (%) (Auto) 9, Eosinophils (%) (Auto) 5, Basophils (%) (Auto) 1, Neutrophils # (Auto) 3.1, Lymphocytes # (Auto) 0.8, Monocytes # (Auto) 0.4, Eosinophils # (Auto) 0.2, Basophils # (Auto) 0.0, Immature Granulocyte # (Auto) 0.0, Percent Immature Platelet Fraction 5.9, Sodium Level 140, Potassium Level 4.2, Chloride Level 110, Carbon Dioxide Level 22, Anion Gap 8, Blood Urea Nitrogen 17, Creatinine 1.01, Estimat Glomerular Filtration Rate 52, BUN/Creatinine Ratio 17, Glucose Level 139, Calcium Level 8.6, Corrected Calcium 9.1, Total Bilirubin 0.6, Aspartate Amino Transf (AST/SGOT) 39, Alanine Aminotransferase (ALT/SGPT) 33, Alkaline Phosphatase 78, Total Protein 6.3, Albumin 3.4 02/19/21 11:17: Glucometer 164 02/19/21 16:16: Glucometer 96 02/19/21 21:31: Glucometer 123 02/20/21 06:56: Glucometer 98 02/20/21 11:15: Glucometer 134 02/20/21 15:16: Glucometer 157 02/21/21 05:25: White Blood Count 7.0, Red Blood Count 4.32, Hemoglobin 13.9, Hematocrit 42, Mean Corpuscular Volume 98, Mean Corpuscular Hemoglobin 32, Mean Corpuscular Hemoglobin Concent 33, Red Cell Distribution Width 13.4, Platelet Count 143, Mean Platelet Volume 12.4, Immature Granulocyte % (Auto) 0, Neutrophils (%) (Auto) 71, Lymphocytes (%) (Auto) 14, Monocytes (%) (Auto) 11, Eosinophils (%) (Auto) 2, Basophils (%) (Auto) 1, Neutrophils # (Auto) 5.0, Lymphocytes # (Auto) 1.0, Monocytes # (Auto) 0.8, Eosinophils # (Auto) 0.2, Basophils # (Auto) 0.1, Immature Granulocyte # (Auto) 0.0, Sodium Level 141, Potassium Level 4.2, Chloride Level 108, Carbon Dioxide Level 21, Anion Gap 12, Blood Urea Nitrogen 18, Creatinine 0.94, Estimat Glomerular Filtration Rate 56, BUN/Creatinine Ratio 19, Glucose Level 70, Calcium Level 8.6, Corrected Calcium 9.2, Total Bilirubin 0.7, Aspartate Amino Transf (AST/SGOT) 48, Alanine Aminotransferase (ALT/SGPT) 40, Alkaline Phosphatase 86, Total Protein 6.3, Albumin 3.3 02/21/21 10:56: Glucometer 178 02/21/21 15:14: Glucometer 135 02/21/21 20:17: Glucometer 177 02/22/21 05:37: Glucometer 91 02/22/21 10:53: Glucometer 114 02/22/21 16:51: Glucometer 97 02/22/21 22:34: Glucometer 197 02/23/21 06:38: Glucometer 167 Discharge Home Medications: Active Scripts Active Diclofenac Sodium 100 Gm Gel..gram. 0 Gm TOP QID Eliquis (Apixaban) 2.5 Mg Tablet 5 Mg PO BID 365 Days LAST FILLED 05-01-2019 #180/90 DAY SUPPLY Reported Lantus Solostar (Insulin Glargine,Hum.rec.anlog) 100 Unit/1 Ml Insuln.pen 25 Unit SQ DAILY Xanax Tablet (Alprazolam) 0.25 Mg Tablet 0.125 Mg PO BID PRN TAKES OF A 0.25MG TAB TWICE DAILY Tradjenta (Linagliptin) 5 Mg Tablet 5 Mg PO DAILY Simvastatin 40 Mg Tablet 40 Mg PO HS Vitamin D3 (Cholecalciferol (Vitamin D3)) 25 Mcg Capsule 25 Mcg PO DAILY Vitamin C (Ascorbic Acid) 250 Mg Tab.chew 250 Mg PO DAILY Vitamin A 8,000 Unit Capsule 8,000 Unit PO DAILY Preservision Areds 2 Softgel (Vit C/E/Zn/Coppr/Lutein/Zeaxan) 1 Each Capsule 1 Each PO BID Multivitamin 1 Each Tablet 1 Each PO DAILY Iron (Ferrous Sulfate) 325 Mg Tablet 325 Mg PO DAILY Garlic 500 Mg Capsule 500 Mg PO DAILY Vitamin B-12 (Cyanocobalamin (Vitamin B-12)) 50 Mcg Tablet 50 Mcg PO DAILY Farxiga (Dapagliflozin Propanediol) 5 Mg Tablet 5 Mg PO DAILY Instructions to patient/family Please see electronic discharge instructions given to patient. Diagnosis/Problems Diagnosis/Problems (1) Debility (2) Dehydration Status: Acute (3) Renal insufficiency Status: Acute WILLIAM RANDALL DO Feb 23, 2021 05:44
[2021-02-23] MEDS: inSUlin ASPART (NovoLOG) 1 UNIT/0.01 ML (CHARGE PER UNIT) SC SCH (06:48)
[2021-02-23] MEDS: MULTIVIT W/MINERALS TAB (THERAGRAN M) PO SCH ×2 (07:00→07:37)
[2021-02-23] MEDS: APIXABAN 5 MG (ELIQUIS) TABLET PO SCH (07:37)
[2021-02-23] MEDS: VITAMIN D3 25 MCG (1,000 UNITS) TABLET PO SCH (07:37)
[2021-02-23] MEDS: ASCORBIC ACID (VIT C) 500 MG TABLET PO SCH (07:37)
[2021-02-23] MEDS: FERROUS SULF 325 MG (IRON) TAB PO SCH (07:37)
[2021-02-23 07:45] VITALS: BP 127/69
--- NOTE | 2021-02-23 11:20 | Therapy Team Discharge Summary ---
Therapy Discharge Summary Discharge Recommendations Date of Discharge Physical Therapy Patient came to rehab with debility. Upon evaluation patient performed rolling and supine <-> sit with independence, sit <-> stand and transfers with SBA, car transfer SBA, ambulated 500' with a rolling walker with SBA (including 50' with at least 2 turns of 90 degrees and 10' over an uneven surface), went up an down 12 steps using 2 handrails with SBA, and picked up an object from the floor with SBA. Patient has been performing bed mobility and transfer training, balance and endurance training, functional strengthening, stair training, gait training, and education. Patient has made good progress and has met all of her assisted goals. Now, patient performs rolling and supine <-> sit with independence, sit <-> stand and transfers with independence, independent with car transfer, ambulates 500' with a rolling walker with independence (including 50' with at least 2 turns of 90 degrees and 10' over an uneven surface), goes up and down 12 steps using 2 handrails with independence, and can leaf size picker an object from the floor with independence. Patient is being discharged from this facility today and will be discharged from PT at this time. Occupational Therapy Impaired Coordination, Impaired Funct Balance, Impaired I ADL's, Impaired Self- Care Skills PT Halfway Goals Position Clerk Goals PT Halfway Goals Time Frame: Mar 05, 2021 Roll Left to Right (QC): 6 (met 02/22/21) Sit to Lying (QC): 6 (met 02/22/21) Lying-Sitting on Side/Bed(QC): 6 (met 02/22/21) Sit to Stand (QC): 6 (met 02/22/21) Chair/Eyb-gp-Xdpim Xfer(QC): 6 (met 02/22/21) Car Transfer (QC): 6 (met 02/22/21) Does the Patient Walk: Yes Walk 10 feet (QC): 6 (met 02/22/21) Walk 10ft-Uneven Surface(QC): 6 (met 02/22/21) Walk 50ft with 2 Turns (QC): 6 (met 02/22/21) Walk 150 ft (QC): 6 (met 02/22/21) Wheel 50 feet with 2 turns (QC: 9 1 Step (curb) (QC): 6 (met 02/22/21) 4 Steps (QC): 6 (met 02/22/21) 12 Steps (QC): 6 (met 02/22/21) Picking up an Object (QC): 6 (met 02/22/21) OT Position Clerk Goals Halfway Goals Time Frame: Mar 05, 2021 Eating (QC): 6 (met) Oral Hygiene (QC): 6 (met) Shower/Bathe Self (QC): 6 (met) Upper Body Dressing (QC): 6 (met) Lower Body Dressing (QC): 6 (met) On/Off Footwear (QC): 6 (met) Toileting Hygiene (QC): 6 (met) Toilet/Commode Transfer (QC): 6 (met 02/22/21) Additional Goals: 1-Demonstrate ADL Tasks, 2-Verbalize Understanding, 3- ImproveStrength/[place] 1=Demonstrate adherence to instructed precautions during ADL tasks. 2=Patient will verbalize/demonstrate understanding of assistive devices/ modifications for ADL. 3=Patient will improve strength/tolerance for activity to enable patient to perform ADL's. PRIYANKA PEÑALOZA PT Feb 23, 2021 11:20
--- NOTE | 2021-02-23 14:37 | Therapy Team Discharge Summary ---
Therapy Discharge Summary Discharge Recommendations Date of Discharge Occupational Therapy Pt admitted to ARU with debility. At [facility], pt was independent with ADLs and IADLs. Upon initial evaluation, pt was independent with eating, oral care and footwear, required supervision with showering and SBA upper body dressing, lower body dressing, and toileting. OT Tx focused on increasing BUE strength and activity tolerance and increasing independence with ADLs and functional mobility. At discharge, pt was independent with all ADLs, attaining all goals. Pt discharged from facility, d/c from OT. Impaired Coordination, Impaired Funct Balance, Impaired I ADL's, Impaired Self- Care Skills PT Shelter Goals Shelter Goals PT Investment Accounting Clerk Goals Time Frame: Mar 05, 2021 Roll Left to Right (QC): 6 (met 02/22/21) Sit to Lying (QC): 6 (met 02/22/21) Lying-Sitting on Side/Bed(QC): 6 (met 02/22/21) Sit to Stand (QC): 6 (met 02/22/21) Chair/Swx-ff-Fqkup Xfer(QC): 6 (met 02/22/21) Car Transfer (QC): 6 (met 02/22/21) Does the Patient Walk: Yes Walk 10 feet (QC): 6 (met 02/22/21) Walk 10ft-Uneven Surface(QC): 6 (met 02/22/21) Walk 50ft with 2 Turns (QC): 6 (met 02/22/21) Walk 150 ft (QC): 6 (met 02/22/21) Wheel 50 feet with 2 turns (QC: 9 1 Step (curb) (QC): 6 (met 02/22/21) 4 Steps (QC): 6 (met 02/22/21) 12 Steps (QC): 6 (met 02/22/21) Picking up an Object (QC): 6 (met 02/22/21) OT Investment Accounting Clerk Goals Shelter Goals Time Frame: Mar 05, 2021 Eating (QC): 6 (met) Oral Hygiene (QC): 6 (met) Shower/Bathe Self (QC): 6 (met) Upper Body Dressing (QC): 6 (met) Lower Body Dressing (QC): 6 (met) On/Off Footwear (QC): 6 (met) Toileting Hygiene (QC): 6 (met) Toilet/Commode Transfer (QC): 6 (met 02/22/21) Additional Goals: 1-Demonstrate ADL Tasks, 2-Verbalize Understanding, 3- ImproveStrength/[place] 1=Demonstrate adherence to instructed precautions during ADL tasks. 2=Patient will verbalize/demonstrate understanding of assistive devices/modifications for ADL. 3=Patient will improve strength/tolerance for activity to enable patient to perform ADL's. HOLLIE TENA OT Feb 23, 2021 14:37
== END 2021-02-23 07:45 | disposition home or self-care (01) | DRG 948 ==
PROVIDERS: ADMIT Internal Medicine; ATTEND Internal Medicine
DX: R53.81 Other malaise (principal); I48.20 Chronic atrial fibrillation, unspecified; Z91.81 History of falling; I10 Essential (primary) hypertension; E11.9 Type 2 diabetes mellitus without complications; S49.91XD Unspecified injury of right shoulder and upper arm, subsequent encounter; Z79.01 Long term (current) use of anticoagulants; Z87.820 Personal history of traumatic brain injury; Z79.4 Long term (current) use of insulin; Z88.6 Allergy status to analgesic agent; Z88.1 Allergy status to other antibiotic agents; Z88.2 Allergy status to sulfonamides; Z88.8 Allergy status to other drugs, medicaments and biological substances; W19.XXXD Unspecified fall, subsequent encounter
CPT/HCPCS: 36415; 80053; 82947; 85025